=== PATIENT | male | born 1970 | race African-American/Black ===

== ENCOUNTER 2019-03-02 04:44 | Emergency (ER) | payer SELFPAY ==
[2019-03-02] MEDS ORDERED: HYDROCODONE/APAP 5/325 MG TAB ONE (05:18)
[2019-03-02] MEDS ORDERED: CYCLOBENZAPRINE 10 MG TAB ONE (05:18)
[2019-03-02] MEDS ORDERED: KETOROLAC 30 MG/ML INJ ONE (05:19)
--- NOTE | 2019-03-02 05:30 | EDPHYS ---
Physician Documentation [facility] Name: Jelani Vázquez Age: 48 yrs Sex: Male : 1970 Arrival Date: 03/02/2019 Time: 04:46 Bed 13 Private MD: ED Physician Gary Scott HPI: 03/02 06:22 This 48 yrs old Black Male presents to ER via Ambulatory with complaints of Shoulder tw4 Pain. 06:22 The patient or guardian complains of decreased range of motion, pain, that is acute. tw4 left shoulder. Context: The problem was sustained at an unknown site. Onset: The symptoms/episode began/occurred yesterday. Modifying factors: the symptoms are alleviated by nothing. The symptoms are aggravated by lifting weight, movement, nothing. Associated signs and symptoms: The patient has no apparent associated signs or symptoms. The patient has not experienced similar symptoms in the past. Historical: - Allergies: 05:00 No Known Allergies; lp1 - Home Meds: 05:00 None [Active]; lp1 - PMHx: 05:00 None; lp1 - PSHx: 05:00 None; lp1 - Immunization history:: Adult Immunizations up to date. - Social history:: Smoking status: Patient uses tobacco products, smokes one pack cigarettes per day. - Ebola Screening: : No symptoms or risks identified at this time. ROS: 06:22 Constitutional: Negative for fever, chills, and weight loss, Eyes: Negative for injury, tw4 pain, redness, and discharge, Cardiovascular: Negative for chest pain, palpitations, and edema, Respiratory: Negative for shortness of breath, cough, wheezing, and pleuritic chest pain, Abdomen/GI: Negative for abdominal pain, nausea, vomiting, diarrhea, and constipation, Back: Negative for injury and pain, Neuro: Negative for headache, weakness, numbness, tingling, and seizure. 06:22 MS/extremity: Positive for injury or acute deformity, decreased range of motion, pain, tenderness. Exam: 06:22 Constitutional: This is a well developed, well nourished patient who is awake, alert, tw4 and in no acute distress. Head/Face: Normocephalic, atraumatic. Chest/axilla: Normal chest wall appearance and motion. Nontender with no deformity. No lesions are appreciated. Cardiovascular: Regular rate and rhythm with a normal S1 and S2. No gallops, murmurs, or rubs. Normal PMI, no JVD. No pulse deficits. Respiratory: Lungs have equal breath sounds bilaterally, clear to auscultation and percussion. No rales, rhonchi or wheezes noted. No increased work of breathing, no retractions or nasal flaring. Abdomen/GI: Soft, non-tender, with normal bowel sounds. No distension or tympany. No guarding or rebound. No evidence of tenderness throughout. Neuro: Awake and alert, GCS 15, oriented to person, place, time, and situation. Cranial nerves II-XII grossly intact. Motor strength 5/5 in all extremities. Sensory grossly intact. Cerebellar exam normal. Normal gait. 06:22 Musculoskeletal/extremity: Extremities: noted in the anterior aspect of left shoulder: decreased ROM, pain, tenderness, noted in the posterior aspect of right knee: decreased ROM, pain, tenderness. Vital Signs: 05:00 BP 156 / 107; Pulse 66; Resp 18; Temp 97.9(O); Pulse Ox 100% on R/A; Weight 88 kg; lp1 Height 6 ft. 0 in. (182.88 cm); Pain 10/10; 05:00 Body Mass Index 26.31 (88.00 kg, 182.88 cm) lp1 MDM: 05:00 Patient medically screened. tw4 06:22 Differential diagnosis: Anterior dislocation without fracture, Posterior dislocation tw4 without fracture, tendonitis, strain sprain. Data reviewed: vital signs, nurses notes. Counseling: I had a detailed discussion with the patient and/or guardian regarding: the historical points, exam findings, and any diagnostic results supporting the discharge/admit diagnosis. Medication response: Toradol relieved patient's pain. The symptoms have resolved. Response to treatment: the patient's symptoms have markedly improved after treatment, and as a result, I will discharge patient, administer pain medication, ibuprofen, Tramadol. Special discussion: I discussed with the patient/guardian in detail that at this point there is no indication for admission to the hospital. It is understood, however, that if the symptoms persist or worsen the patient needs to return immediately for re-evaluation. Administered Medications: 05:30 Drug: TORadol 60 mg Route: IM; Site: right gluteus; jb4 05:49 Follow up: Response: No adverse reaction; Pain is decreased jb4 05:30 Drug: [place] 5 mg-325 mg 1 tabs {Note: Rass score 0.} Route: PO; jb4 05:50 Follow up: Response: No adverse reaction; Pain is decreased; RASS: Alert and Calm (0) 4 05:30 Drug: Flexeril 10 mg Route: PO; 4 05:49 Follow up: Response: No adverse reaction; Pain is decreased 4 Disposition: 03/02/19 05:30 Discharged to Home. Impression: Pain in left shoulder, Sprain of other specified parts of right knee. - Condition is Stable. - Discharge Instructions: Joint Pain, Musculoskeletal Pain, Shoulder Pain. - Prescriptions for Ibuprofen 800 mg Oral Tablet - take 1 tablet by ORAL route every 8 hours As needed take with food; 30 tablet. Cyclobenzaprine 10 mg Oral Tablet - take 1 tablet by ORAL route every 8 hours As needed; 30 tablet. Tramadol 50 mg Oral Tablet - take 1 tablet by ORAL route every 8 hours as needed; 12 tablet. - Medication Reconciliation Form, Thank You Letter, Antibiotic Education, Prescription Opioid Use form. - Follow up: Private Physician; When: Upon discharge from the Emergency Department; Reason: Recheck today's complaints, Continuance of care. - Problem is new. - Symptoms have improved. Signatures: Abbie Yang RN RN lp1 Cas Barnes RN RN jb4 Gary Scott MD MD tw4 Corrections: (The following items were deleted from the chart) 05:50 05:30 03/02/2019 05:30 Discharged to Home. Impression: Pain in left shoulder; Sprain of jb4 other specified parts of right knee. Condition is Stable. Forms are Medication Reconciliation Form, Thank You Letter, Antibiotic Education, Prescription Opioid Use. Follow up: Private Physician; When: Upon discharge from the Emergency Department; Reason: Recheck today's complaints, Continuance of care. Problem is new. Symptoms have improved. tw4
--- NOTE | 2019-03-02 05:30 | ER ---
Nurse's Notes [facility] Name: Jelani Vázquez Age: 48 yrs Sex: Male : 1970 Arrival Date: 03/02/2019 Time: 04:46 Bed 13 Private MD: Diagnosis: Pain in left shoulder;Sprain of other specified parts of right knee Presentation: 03/02 04:58 Presenting complaint: Patient states: Pain to left shoulder and pain being right knee lp1 that began last night, patient states pain worsened; Denies any injury, limited ROM due to pain; States taking x4 baby ASA with no relief. Transition of care: patient was not received from another setting of care. Onset of symptoms was March 02, 2019. Risk Assessment: Do you want to hurt yourself or someone else? Patient reports no desire to harm self or others. Initial Sepsis Screen: Does the patient meet any 2 criteria? No. Patient's initial sepsis screen is negative. Does the patient have a suspected source of infection? No. Patient's initial sepsis screen is negative. Care prior to arrival: None. 04:58 Method Of Arrival: Ambulatory lp1 04:58 Acuity: GINNA 4 lp1 Historical: - Allergies: 05:00 No Known Allergies; lp1 - Home Meds: 05:00 None [Active]; lp1 - PMHx: 05:00 None; lp1 - PSHx: 05:00 None; lp1 - Immunization history:: Adult Immunizations up to date. - Social history:: Smoking status: Patient uses tobacco products, smokes one pack cigarettes per day. - Ebola Screening: : No symptoms or risks identified at this time. Screenin:00 Abuse screen: Denies threats or abuse. Nutritional screening: No deficits noted. jb4 Tuberculosis screening: No symptoms or risk factors identified. Fall Risk None identified. Assessment: 05:00 General: Appears in no apparent distress. uncomfortable, Behavior is calm, cooperative, jb4 appropriate for age. Pain: Complains of pain in Left shoulder, Right knee Pain does not radiate. Pain currently is 10 out of 10 on a pain scale. Quality of pain is described as stabbing, throbbing, Is continuous. Neuro: Level of Consciousness is awake, alert, obeys commands, Oriented to person, place, time, situation. Cardiovascular: Patient's skin is warm and dry. Respiratory: Airway is patent Respiratory effort is even, unlabored, Respiratory pattern is regular, symmetrical. GI: No signs and/or symptoms were reported involving the gastrointestinal system. : No signs and/or symptoms were reported regarding the genitourinary system. EENT: No signs and/or symptoms were reported regarding the EENT system. Derm: Skin is intact, Skin is pink, warm \T\ dry. Musculoskeletal: Circulation, motion, and sensation intact. Range of motion: intact in all extremities. 05:48 Reassessment: Patient appears in no apparent distress at this time. Patient and/or jb4 family updated on plan of care and expected duration. Pain level reassessed. Patient is alert, oriented x 3, equal unlabored respirations, skin warm/dry/pink. Vital Signs: 05:00 BP 156 / 107; Pulse 66; Resp 18; Temp 97.9(O); Pulse Ox 100% on R/A; Weight 88 kg; lp1 Height 6 ft. 0 in. (182.88 cm); Pain 10/10; 05:00 Body Mass Index 26.31 (88.00 kg, 182.88 cm) lp1 ED Course: 04:46 Patient arrived in ED. jg7 04:59 Cas Barnes, RN is Primary Nurse. jb4 04:59 Triage completed. lp1 04:59 Arm band placed on. lp1 05:00 Gary Scott MD is Attending Physician. tw4 05:00 Patient has correct armband on for positive identification. Bed in low position. Call jb4 light in reach. Side rails up X 1. Pulse ox on. NIBP on. 05:48 No provider procedures requiring assistance completed. Patient did not have IV access jb4 during this emergency room visit. Administered Medications: 05:30 Drug: TORadol 60 mg Route: IM; Site: right gluteus; jb4 05:49 Follow up: Response: No adverse reaction; Pain is decreased jb4 05:30 Drug: [place] 5 mg-325 mg 1 tabs {Note: Rass score 0.} Route: PO; jb4 05:50 Follow up: Response: No adverse reaction; Pain is decreased; RASS: Alert and Calm (0) jb4 05:30 Drug: Flexeril 10 mg Route: PO; jb4 05:49 Follow up: Response: No adverse reaction; Pain is decreased jb4 Outcome: 05:30 Discharge ordered by . tw4 05:48 Discharged to home ambulatory, with family. jb4 05:48 Condition: stable 05:48 Discharge instructions given to patient, family, Instructed on discharge instructions, follow up and referral plans. medication usage, Demonstrated understanding of instructions, follow-up care, medications, Prescriptions given X 3. 05:50 Patient left the ED. jb4 Signatures: Abbie Yang RN RN lp1 Cas Barnes RN RN jb4 Gary Scott MD MD tw4 Megan Rush jg7 Corrections: (The following items were deleted from the chart) 05:01 04:58 Presenting complaint: Patient states: Pain to left shoulder and pain being right lp1 knee that began last night, patient states pain worsened; Denies any injury, limited ROM due to pain lp1
[2019-03-02 05:56] VITALS: BP 156/107; TEMP 97.9; O2SAT 100
== END 2019-03-02 05:50 | disposition home or self-care (01) ==
LOC: ER 04:44
DX: S83.91XA Sprain of unspecified site of right knee, initial encounter (principal); M25.512 Pain in left shoulder; X58.XXXA Exposure to other specified factors, initial encounter; F17.210 Nicotine dependence, cigarettes, uncomplicated
CPT/HCPCS: 96372; 99283

== ENCOUNTER 2020-03-23 08:57 | Emergency (ER) | payer BC, SELFPAY ==
--- OUTSIDE RECORDS SUMMARY | 2020-03-23 09:15 | XMS REPORT | Continuity of Care Document ---
:1970 Author Organization [facility] t Address [address] [place] [address] Dr. Tran [address] [place] [id number] Care Team Providers Name Role Phone Berkley Hong PA-C Attending Clinician Problems This patient has no known problems. Allergies, Adverse Reactions, Alerts This patient has no known allergies or adverse reactions. Medications This patient has no known medications. Procedures This patient has no known procedures. Encounters Start End Encounter Admission Attending Care Care Encounter Source Date/Time Date/Time Type Type Clinicians Facility Department ID 2019-08-25 2019-08-25 Telephone [facility] [id number] 00:00:00 00:00:00 Delonte Gooden SPECIALTY [id number] CARE [id number] CENTER AT [id number] JUAN CARLOS 2 [facility] [place] 2019-08-13 2019-08-13 Telephone [facility] [phone] [id number] 00:00:00 00:00:00 Delonte Gooden MULTISPEC [id number] [facility] [id number] CENTER [id number] [facility] Results This patient has no known results.
[2020-03-23] MEDS ORDERED: ACETAMINOPHEN 500 MG TAB ONE (10:40)
--- NOTE | 2020-03-23 10:50 | RAD REPORT ---
EXAM DESCRIPTION: CT - Head Brain Wo Cont - 03/23/2020 10:36 am CLINICAL HISTORY: Headache COMPARISON: None TECHNIQUE: Computed axial tomography of the head was obtained. IV contrast was not requested. All CT scans are performed using dose optimization technique as appropriate and may include automated exposure control or mA/KV adjustment according to patient size. FINDINGS: An intracranial bleed is not seen . The ventricles are normal in caliber. No extra-axial fluid collection is noted. . Fluid within the sinuses/ mastoids is not seen. Mild chronic sinusitis IMPRESSION: No acute intracranial abnormality is seen. If patient's symptoms persist MRI of the bra in would be recommended.
--- NOTE | 2020-03-23 11:06 | ER ---
Nurse's Notes [facility] Name: Jelani Vázquez Age: 49 yrs Sex: Male : 1970 Arrival Date: 03/23/2020 Time: 09:00 Bed 19 Private MD: Diagnosis: Headache Presentation: 03/23 09:39 Chief complaint: Patient states: headache X 1 week and just feeling weak, does not iw usually get headaches, was exposed to COVID last week. Coronavirus screen: The client reports previous COVID testing was negative. Ebola Screen: Patient negative for fever greater than or equal to 101.5 degrees Fahrenheit, and additional compatible Ebola Virus Disease symptoms Patient denies exposure to infectious person. Patient denies travel to an Ebola-affected area in the 21 days before illness onset. No symptoms or risks identified at this time. Initial Sepsis Screen: Does the patient meet any 2 criteria? No. Patient's initial sepsis screen is negative. Does the patient have a suspected source of infection? No. Patient's initial sepsis screen is negative. Risk Assessment: Do you want to hurt yourself or someone else? Patient reports no desire to harm self or others. Onset of symptoms was March 16, 2020. 09:39 Method Of Arrival: Ambulatory iw 09:39 Acuity: GINNA 3 iw Historical: - Allergies: 09:42 No Known Allergies; iw - Home Meds: 09:42 None [Active]; iw - PMHx: 09:42 None; iw - PSHx: 09:42 None; iw - Immunization history:: Adult Immunizations unknown. - Social history:: Smoking status: unknown. Screenin:08 Abuse screen: Denies threats or abuse. Denies injuries from another. Nutritional ph screening: No deficits noted. Tuberculosis screening: No symptoms or risk factors identified. Fall Risk None identified. Assessment: 10:28 General: Appears in no apparent distress. Behavior is calm, cooperative. Pain: iw Complains of pain in head. Neuro: Level of Consciousness is awake, alert, obeys commands, Oriented to person, place, time, situation, Moves all extremities. Full function. Cardiovascular: Patient's skin is warm and dry. Respiratory: Respiratory effort is even, unlabored, Respiratory pattern is regular, symmetrical. Derm: Skin is intact, is healthy with good turgor. Musculoskeletal: Range of motion: intact in all extremities. 11:30 Reassessment: Patient appears in no apparent distress at this time. Patient and/or ph family updated on plan of care and expected duration. Pain level reassessed. Patient is alert, oriented x 3, equal unlabored respirations, skin warm/dry/pink. Vital Signs: 09:39 BP 128 / 79; Pulse 67; Resp 16; Temp 98.3; Pulse Ox 100% on R/A; Weight 108.86 kg; iw Height 6 ft. 0 in. (182.88 cm); Pain 7/10; 09:39 Body Mass Index 32.55 (108.86 kg, 182.88 cm) iw ED Course: 09:00 Patient arrived in ED. rg4 09:41 Triage completed. iw 10:08 Peggy Cain RN is Primary Nurse. ph 10:08 Dipak Guerrero PA is PHCP. cp 10:08 Zurdo Mcneil MD is Attending Physician. cp 10:08 Arm band placed on Patient placed in an exam room. ph 10:08 Patient has correct armband on for positive identification. Call light in reach. Door ph closed. Noise minimized. 10:28 No provider procedures requiring assistance completed. Patient did not have IV access iw during this emergency room visit. 10:36 CT Head Brain wo Cont In Process Unspecified. EDMS Administered Medications: 10:27 Drug: Tylenol 1000 mg Route: PO; iw 11:30 Follow up: Response: No adverse reaction ph Outcome: 11:06 Discharge ordered by MD. cp 11:30 Patient left the ED. ph Addendum: 03/25/2020 08:02 Addendum: COVID-19 Result: Negative result given to RN to notify pt. Notified pt of a a5 negative COVID 19 swab results. Pt advised that even with a negative test result they should remain in isolation until symptom free for 3 days without medication. Pt also advised to return to the ED for worsening symptoms. Signatures: Dispatcher [employer] EDMS Lucia Jordan RN RN Enedelia Lira RN RN aa5 Peggy Cain RN RN ph Dipak Guerrero PA PA cp Garcia, Rubi rg4
--- NOTE | 2020-03-23 11:07 | EDPHYS ---
Physician Documentation [facility] Name: Jelani Vázquez Age: 49 yrs Sex: Male : 1970 Arrival Date: 03/23/2020 Time: 09:00 Bed 19 Private MD: ED Physician Zurdo Mcneil HPI: 03/23 10:25 This 49 yrs old Black Male presents to ER via Ambulatory with complaints of Headache, cp Covid Exposure. 10:25 The patient complains of pain to the right islam, right frontal area and right cp temporal area. The patient describes the headache as aching. Onset: The symptoms/episode began/occurred 1 week(s) ago. 10:25 Associated signs and symptoms: Pertinent negatives: altered mental status, dizziness, cp fever, neck stiffness, sinus congestion, sinus tenderness, vision changes, vomiting. Severity of symptoms: in the emergency department the pain a " 7" out of "10". Patient reports girlfriend tested positive for COVID-19 last week. Patient reports [facility] and was negative. Historical: - Allergies: 09:42 No Known Allergies; iw - Home Meds: 09:42 None [Active]; iw - PMHx: 09:42 None; iw - PSHx: 09:42 None; iw - Immunization history:: Adult Immunizations unknown. - Social history:: Smoking status: unknown. ROS: 10:30 Constitutional: Negative for body aches, chills, fever, poor PO intake. cp 10:30 Eyes: Negative for injury, pain, redness, and discharge. cp Exam: 10:35 Constitutional: The patient appears in no acute distress, alert, awake, non-toxic, well cp developed, well nourished. 10:35 Head/Face: Normocephalic, atraumatic. cp 10:35 Eyes: Periorbital structures: appear normal, Conjunctiva: normal, no exudate, no injection, Lids and lashes: appear normal, bilaterally. 10:35 ENT: External ear(s): are unremarkable, Ear canal(s): are normal, clear, TM's: dullness, bilaterally, Nose: is normal, Mouth: Lips: moist, Oral mucosa: moist, Posterior pharynx: Airway: no evidence of obstruction, patent, Tonsils: no enlargement, no erythema, no exudate, erythema, is not appreciated. 10:35 Neck: ROM/movement: is normal, is supple, no meningismus, no nuchal rigidity, Lymph nodes: no appreciated lymphadenopathy. 10:35 Chest/axilla: Inspection: normal. 10:35 Cardiovascular: Rate: normal. 10:35 Respiratory: the patient does not display signs of respiratory distress, Respirations: normal, no use of accessory muscles, no retractions, labored breathing, is not present. 10:35 Abdomen/GI: Exam negative for discomfort, distension, guarding, Inspection: abdomen appears normal. 10:35 Skin: no rash present. 10:35 Neuro: Orientation: to person, place \\T\\ time. Mentation: is normal, Cerebellar function: is grossly normal, Motor: moves all fours, strength is normal, Sensation: is normal. Vital Signs: 09:39 BP 128 / 79; Pulse 67; Resp 16; Temp 98.3; Pulse Ox 100% on R/A; Weight 108.86 kg; iw Height 6 ft. 0 in. (182.88 cm); Pain 7/10; 09:39 Body Mass Index 32.55 (108.86 kg, 182.88 cm) iw MDM: 10:12 Patient medically screened. cp 10:35 Differential diagnosis: meningitis, meningoencephalitis, migraine, neoplasm, sinusitis, cp tension headache. 11:05 Data reviewed: vital signs, nurses notes, radiologic studies, CT scan. cp 11:05 Counseling: I had a detailed discussion with the patient and/or guardian regarding: the cp historical points, exam findings, and any diagnostic results supporting the discharge/admit diagnosis, radiology results, to return to the emergency department if symptoms worsen or persist or if there are any questions or concerns that arise at home. ED course: VSS. Patient appears non-toxic. Will discharge to home to quarantine while awaiting results of COVID-19 testing. 03/23 10: Order name: COVID-19 cp 03/23 10: Order name: CT Head Brain wo Cont; Complete Time: 11:03 cp Administered Medications: 10:27 Drug: Tylenol 1000 mg Route: PO; iw 11:30 Follow up: Response: No adverse reaction ph Disposition: 03/23/20 11:06 Discharged to Home. Impression: Headache. - Condition is Stable. - Discharge Instructions: General Headache Without Cause, COVID-19. - Prescriptions for Ibuprofen 800 mg Oral Tablet - take 1 tablet by ORAL route every 8 hours As needed take with food; 30 tablet. - Work release form, Medication Reconciliation Form, Thank You Letter, Antibiotic Education, Prescription Opioid Use form. - Follow up: Private Physician; When: 1 - 2 days; Reason: Worsening of condition. - Problem is new. - Symptoms have improved. Addendum: 03/24/2020 14:11 Co-signature as Attending Physician, Zurdo Mcneil MD I agree with the assessment and k dr plan of care. Signatures: Dispatcher [employer] EDNV Zurdo Mcneil MD MD kdr Lucia Jordan RN RN iw Peggy Cain RN RN ph Yolanda, LINUS Quesada cp Corrections: (The following items were deleted from the chart) 03/23 11:30 11:06 03/23/2020 11:06 Discharged to Home. Impression: Headache. Condition is Stable. ph Forms are Medication Reconciliation Form, Thank You Letter, Antibiotic Education, Prescription Opioid Use. Follow up: Private Physician; When: 1 - 2 days; Reason: Worsening of condition. Problem is new. Symptoms have improved. cp
[2020-03-28 15:34] VITALS: BP 128/79; TEMP 98.3; O2SAT 100
== END 2020-03-23 11:30 | disposition home or self-care (01) ==
LOC: ER 08:57
DX: R51.9 Headache, unspecified (principal); Z20.828 Contact with and (suspected) exposure to other viral communicable diseases
CPT/HCPCS: 70450; 99283; U0002

== ENCOUNTER 2020-06-09 06:45 | Emergency (ER) | payer BC ==
--- OUTSIDE RECORDS SUMMARY | 2020-06-09 06:47 | XMS REPORT | Continuity of Care Document ---
:1970 Author Organization [facility] t Address [address] [place] [address] Dr. Olgu[address] [place] [address] Care Team Providers Name Role Phone Berkley [...] Clinicians Facility Department ID 2019-08-25 2019-08-25 Telephone [facility] [id number] 00:00:00 00:00:00 Delonte Gooden SPECIALTY [id number] CARE [id number] CENTER AT [id number] [address] 2019-08-13 2019-08-13 [facility]phone [facility] [id number] 00:00:00 00:00:00 Delonte Gooden MULT[facility]PEC [id number] [facility] [id number] CENTER [id number] [facility] Results This patient has no known results.
[2020-06-09 07:45] LABS: Absolute Lymphocytes (CBC) 1.5 K/uL (0.7-4.9); Basophils % 0.6 % (0-1.3); Hematocrit 40.1 % (39.6-49.0); Lymphocytes % 24.4 % (15.3-44.8); MPV 7.5 fL (7.6-11.3); RBC Red Blood Cell Count 4.44 M/uL (4.33-5.43)
[2020-06-09] MEDS ORDERED: KETOROLAC 30 MG/ML INJ ONE (07:48)
[2020-06-09] MEDS ORDERED: HYDROCODONE/APAP 10/325 TAB ONE (07:48)
[2020-06-09 08:02] LABS: BUN Blood Urea Nitrogen 11 mg/dL (7-18); Bicarbonate 28 mmol/L (21-32); Glucose Level 90 mg/dL (74-106); Potassium 3.9 mmol/L (3.5-5.1); Sodium Level 141 mmol/L (136-145); Uric Acid 4.2 mg/dL (3.5-7.2)
--- NOTE | 2020-06-09 08:48 | RAD REPORT ---
EXAM DESCRIPTION: RAD - Knee Left 3 View - 06/09/2020 8:26 am CLINICAL HISTORY: PAIN, nontraumatic COMPARISON: No comparisons FINDINGS: No fracture, dislocation or periosteal reaction.No joint effusion seen. No joint space maxwell rowing. No soft tissue abnormality. IMPRESSION: Negative left knee. Clinical concerns for internal derangement or occult bony injury could be further assessed with MR im aging.
[2020-06-09] MEDS ORDERED: TRAMADOL HCL 50 MG TAB ONE (10:16)
--- NOTE | 2020-06-09 10:52 | EDPHYS ---
Physician Documentation [facility] Name: Jelani Vázquez Age: 50 yrs Sex: Male : 1970 Arrival Date: 06/09/2020 Time: 06:47 Bed 8 Private MD: ED Physician Zurdo Mcneil HPI: 06/09 07:16 This 50 yrs old Black Male presents to ER via Unassigned with complaints of Knee Pain. kdr 07:16 The patient presents with decreased range of motion, pain, that is acute. The kdr complaints affect the lateral aspect of left knee, posterior aspect of left knee, medial aspect of left knee and left knee. Context: The problem was sustained at home, resulted from an unknown cause, the patient can fully bear weight, the patient is able to ambulate, with mild difficulty, Problem is a result from a previous injury: No. Onset: The symptoms/episode began/occurred yesterday. Modifying factors: The symptoms are alleviated by nothing. the symptoms are aggravated by movement, weight bearing, bending knee. Associated signs and symptoms: The patient has no apparent associated signs or symptoms. Treatment prior to arrival includes: no previous treatment. Severity of symptoms: At their worst the symptoms were moderate, severe, in the emergency department the symptoms are unchanged. The patient has not experienced similar symptoms in the past, Has had pain in shoulder and left lateral hand but not in his knees. Historical: - Allergies: 07:19 No Known Allergies; jd3 - Home Meds: 07:19 None [Active]; jd3 - PMHx: 07:19 None; jd3 - PSHx: 07:19 None; jd3 - Immunization history:: Adult Immunizations up to date. - Social history:: Smoking status: Patient reports the use of cigarette tobacco products, smokes one-half pack cigarettes per day. ROS: 07:16 Constitutional: Negative for fever, chills, and weight loss, Eyes: Negative for injury, kdr pain, redness, and discharge, ENT: Negative for injury, pain, and discharge, Neck: Negative for injury, pain, and swelling, Cardiovascular: Negative for chest pain, palpitations, and edema, Respiratory: Negative for shortness of breath, cough, wheezing, and pleuritic chest pain, Abdomen/GI: Negative for abdominal pain, nausea, vomiting, diarrhea, and constipation, Back: Negative for injury and pain, : Negative for injury, bleeding, discharge, and swelling, Skin: Negative for injury, rash, and discoloration, Neuro: Negative for headache, weakness, numbness, tingling, and seizure activity. Psych: Negative for depression, anxiety, suicide ideation, homicidal ideation, and hallucinations, Allergy/Immunology: Negative for hives, rash, and allergies, Endocrine: Negative for neck swelling, polydipsia, polyuria, polyphagia, and marked weight changes, Hematologic/Lymphatic: Negative for swollen nodes, abnormal bleeding, and unusual bruising. 07:16 MS/extremity: Positive for decreased range of motion, pain. Exam: 14:24 Constitutional: This is a well developed, well nourished patient who is awake, alert, kdr and in no acute distress. Head/Face: Normocephalic, atraumatic. Eyes: Pupils equal round and reactive to light, extra-ocular motions intact. Lids and lashes normal. Conjunctiva and sclera are non-icteric and not injected. Cornea within normal limits. Periorbital areas with no swelling, redness, or edema. Neck: Trachea midline, no thyromegaly or masses palpated, and no cervical lymphadenopathy. Supple, full range of motion without nuchal rigidity, or vertebral point tenderness. No Meningismus. Chest/axilla: Normal chest wall appearance and motion. Nontender with no deformity. No lesions are appreciated. Back: No spinal tenderness. No costovertebral tenderness. Full range of motion. Skin: Warm, dry with normal turgor. Normal color with no rashes, no lesions, and no evidence of cellulitis. Neuro: Awake and alert, GCS 15, oriented to person, place, time, and situation. Cranial nerves II-XII grossly intact. Motor strength 5/5 in all extremities. Sensory grossly intact. Cerebellar exam normal. Normal gait. Psych: Awake, alert, with orientation to person, place and time. Behavior, mood, and affect are within normal limits. 14:24 Musculoskeletal/extremity: ROM: limited active range of motion, in the lateral aspect of left knee, posterior aspect of left knee, medial aspect of left knee and left knee, Circulation is intact in all extremities. Sensation intact. Compartment Syndrome exam of affected extremity: is normal. Joints: the left knee displays limited range of motion, pain at rest, painful range of motion, tenderness. Vital Signs: 07:19 BP 119 / 97; Pulse 71; Resp 16 S; Temp 98.7(TE); Pulse Ox 99% on R/A; Weight 90.72 kg jd3 (R); Height 6 ft. 0 in. (182.88 cm) (R); Pain 10/10; 08:06 Pulse 70; Resp 16 S; Pulse Ox 99% on R/A; jd3 10:04 BP 118 / 80; Pulse 45; Resp 17; Pulse Ox 100% ; jl7 07:19 Body Mass Index 27.12 (90.72 kg, 182.88 cm) jd3 MDM: 10:51 Patient medically screened. kdr 14:24 Data reviewed: vital signs, nurses notes, lab test result(s), radiologic studies. kdr Counseling: I had a detailed discussion with the patient and/or guardian regarding: the historical points, exam findings, and any diagnostic results supporting the discharge/admit diagnosis, lab results, radiology results, the need for outpatient follow up. 06/09 07:15 Order name: CBC with Diff kdr 06/09 07:15 Order name: Chem 7 kdr 06/09 07:15 Order name: Uric Acid kdr 06/09 07:16 Order name: CBC with Automated Diff; Complete Time: 08:29 EDMS 06/09 07:16 Order name: Basic Metabolic Panel; Complete Time: 08:29 EDMS 06/09 07:16 Order name: Uric Acid; Complete Time: 08:29 EDMS 06/09 07:15 Order name: Knee Left 3 View XRAY; Complete Time: 09:28 kdr Administered Medications: 07:42 Drug: TORadol - Ketorolac 15 mg Route: IVP; Site: right antecubital; jd3 08:00 Follow up: Response: No adverse reaction; Pain is unchanged, physician notified jl7 07:42 Not Given (Patient Refused): [place] 10 mg-325 mg 1 tabs PO once; RASS on ADMIN: Combtv4, jd3 Very Agttd3, Agttd2, Rstlss1, AlertClm0, Drwsy-1, Lt Sdtn-2, Mod Sdtn-3, Dp Sdtn-4, UnArsble-5 10:04 Drug: traMADol 100 mg Route: PO; jl7 10:39 Follow up: Response: No adverse reaction; Pain is decreased jl7 Disposition: 06/09/20 10:51 Discharged to Home. Impression: Pain in left knee. - Condition is Stable. - Discharge Instructions: Joint Pain, Musculoskeletal Pain, Knee Pain. - Prescriptions for Tramadol 50 mg Oral Tablet - take 1 tablet by ORAL route every 4-6 hours as needed; 16 tablet. - Medication Reconciliation Form, Thank You Letter, Prescription Opioid Use, Work release form form. - Follow up: Private Physician; When: 2 - 3 days; Reason: If symptoms return, Further diagnostic work-up, Recheck today's complaints, Continuance of care, Re-evaluation by your physician. Follow up: Jermaine Cordova MD; When: 2 - 3 days; Reason: If symptoms return, Further diagnostic work-up, Recheck today's complaints, Continuance of care, Re-evaluation by your physician. - Problem is an ongoing problem. - Symptoms have improved. Signatures: Dispatcher [employer] EDMS Zurdo Mcneil MD MD [facility] Jasbir Soria RN RN jl7 Shmuel Mendez RN RN jd3 Corrections: (The following items were deleted from the chart) 10:58 10:51 06/09/2020 10:51 Discharged to Home. Impression: Pain in left knee. Condition is jl7 Stable. Forms are Work release form, Medication Reconciliation Form, Thank You Letter, Antibiotic Education, Prescription Opioid Use. Follow up: Private Physician; When: 2 - 3 days; Reason: If symptoms return, Further diagnostic work-up, Recheck today's complaints, Continuance of care, Re-evaluation by your physician. Follow up: Dr. Jermaine Cordova; When: 2 - 3 days; Reason: If symptoms return, Further diagnostic work-up, Recheck today's complaints, Continuance of care, Re-evaluation by your physician. Problem is an ongoing problem. Symptoms have improved. kdr
--- NOTE | 2020-06-09 10:52 | ER ---
Nurse's Notes [facility] Name: Jelani Vázquez Age: 50 yrs Sex: Male : 1970 Arrival Date: 06/09/2020 Time: 06:47 Bed 8 Private MD: Diagnosis: Pain in left knee Presentation: 06/09 07:17 Chief complaint: Patient states: "I a,m having left knee pain that started last night. jd3 I haven't injured it, but it feels like my leg is just going ot fall off.". Coronavirus screen: At this time, the client does not indicate any symptoms associated with coronavirus-19. Ebola Screen: Patient negative for fever greater than or equal to 101.5 degrees Fahrenheit, and additional compatible Ebola Virus Disease symptoms. Initial Sepsis Screen: Does the patient meet any 2 criteria? No. Patient's initial sepsis screen is negative. Does the patient have a suspected source of infection? No. Patient's initial sepsis screen is negative. Risk Assessment: Do you want to hurt yourself or someone else? Patient reports no desire to harm self or others. Onset of symptoms was June 08, 2020. 07:17 Method Of Arrival: Ambulatory jd3 07:17 Acuity: GINNA 3 jd3 Historical: - Allergies: 07:19 No Known Allergies; jd3 - Home Meds: 07:19 None [Active]; jd3 - PMHx: 07:19 None; jd3 - PSHx: 07:19 None; jd3 - Immunization history:: Adult Immunizations up to date. - Social history:: Smoking status: Patient reports the use of cigarette tobacco products, smokes one-half pack cigarettes per day. Screenin:20 Abuse screen: Denies threats or abuse. Nutritional screening: No deficits noted. jd3 Tuberculosis screening: No symptoms or risk factors identified. Fall Risk Ambulatory Aid- None/Bed Rest/Nurse Assist (0 pts). Gait- Normal/Bed Rest/Wheelchair (0 pts) Mental Status- Oriented to own ability (0 pts). Total Bradshaw Fall Scale indicates No Risk (0-24 pts). Assessment: 07:21 General: Appears in no apparent distress. uncomfortable, Behavior is calm, cooperative, jd3 appropriate for age. Pain: Complains of pain in left knee Quality of pain is described as sharp, shooting. Neuro: Level of Consciousness is awake, alert, obeys commands, Oriented to person, place, time, situation. Cardiovascular: Capillary refill < 3 seconds Patient's skin is warm and dry. Respiratory: Airway is patent Respiratory effort is even, unlabored, Respiratory pattern is regular, symmetrical. GI: No signs and/or symptoms were reported involving the gastrointestinal system. : No signs and/or symptoms were reported regarding the genitourinary system. EENT: No signs and/or symptoms were reported regarding the EENT system. Derm: Skin is intact, Skin is dry, Skin is normal, Skin temperature is warm. Musculoskeletal: Circulation, motion, and sensation intact. Range of motion: intact in all extremities. 08:07 Reassessment: Patient appears in no apparent distress at this time. No changes from [facility] previously documented assessment. Patient and/or family updated on plan of care and expected duration. Pain level reassessed. Patient is alert, oriented x 3, equal unlabored respirations, skin warm/dry/pink. 09:00 Reassessment: Patient appears in no apparent distress at this time. Patient and/or [facility] family updated on plan of care and expected duration. Pain level reassessed. Patient is alert, oriented x 3, equal unlabored respirations, skin warm/dry/pink. Patient states feeling better. 10:03 Reassessment: Patient appears in no apparent distress at this time. No changes from [facility] previously documented assessment. Patient and/or family updated on plan of care and expected duration. Pain level reassessed. Patient is alert, oriented x 3, equal unlabored respirations, skin warm/dry/pink. ERD notified of unchanged pain, see [facility] for orders. 10:40 Reassessment: Pt reports decreased pain, requesting to be discharged, ERD notified. [facility] 10:42 Reassessment: ERD at bedside discussing results and POC. [facility] Vital Signs: 07:19 BP 119 / 97; Pulse 71; Resp 16 S; Temp 98.7(TE); Pulse Ox 99% on R/A; Weight 90.72 kg jd3 (R); Height 6 ft. 0 in. (182.88 cm) (R); Pain 10/10; 08:06 Pulse 70; Resp 16 S; Pulse Ox 99% on R/A; jd3 10:04 BP 118 / 80; Pulse 45; Resp 17; Pulse Ox 100% ; jl7 07:19 Body Mass Index 27.12 (90.72 kg, 182.88 cm) jd3 ED Course: 06:47 Patient arrived in ED. bp1 07:12 Zurdo Mcneil MD is Attending Physician. kdr 07:17 Shmuel Mendez, RN is Primary Nurse. jd3 07:19 Triage completed. jd3 07:20 Arm band placed on. jd3 07:20 Patient has correct armband on for positive identification. Bed in low position. Call j light in reach. Side rails up X 1. Pulse ox on. NIBP on. 07:30 Initial lab(s) drawn, by me, sent to lab. Inserted saline lock: 20 gauge in right jl7 forearm, using aseptic technique. Blood collected. 08:25 Knee Left 3 View XRAY In Process Unspecified. EDMS 10:51 Jermaine Cordova MD is Referral Physician. kdr 10:57 No provider procedures requiring assistance completed. IV discontinued, intact, jl7 bleeding controlled, No redness/swelling at site. Pressure dressing applied. Administered Medications: 07:42 Drug: TORadol - Ketorolac 15 mg Route: IVP; Site: right antecubital; jd3 08:00 Follow up: Response: No adverse reaction; Pain is unchanged, physician notified jl7 07:42 Not Given (Patient Refused): [place] 10 mg-325 mg 1 tabs PO once; RASS on ADMIN: Combtv4, jd3 Very Agttd3, Agttd2, Rstlss1, AlertClm0, Drwsy-1, Lt Sdtn-2, Mod Sdtn-3, Dp Sdtn-4, UnArsble-5 10:04 Drug: traMADol 100 mg Route: PO; jl7 10:39 Follow up: Response: No adverse reaction; Pain is decreased jl7 Outcome: 10:51 Discharge ordered by . kdr 10:57 Discharged to home ambulatory. jl7 10:57 Condition: stable 10:57 Discharge instructions given to patient, Instructed on discharge instructions, follow up and referral plans. medication usage, Demonstrated understanding of instructions, follow-up care, medications, Prescriptions given X 1. 10:58 Patient left the ED. jl7 Signatures: Dispatcher [employer] EDND Zurdo Mcneil MD MD kdr Soria, Jahala, RN RN jl7 Shmuel Mendez RN RN jd3 Catrina Panda
[2020-06-09 15:47] VITALS: BP 119/97; TEMP 98.7; O2SAT 99
== END 2020-06-09 10:58 | disposition home or self-care (01) ==
LOC: ER 06:45
DX: M25.562 Pain in left knee (principal); F17.210 Nicotine dependence, cigarettes, uncomplicated
CPT/HCPCS: 36415; 80048; 84550; 85025; 96374; 99284

== ENCOUNTER 2021-04-23 21:00 | Emergency (ER) | payer BC ==
--- OUTSIDE RECORDS SUMMARY | 2021-04-23 21:03 | XMS REPORT | Continuity of Care Document ---
:1970 Author Organization [facility] t Address [address] [place] [address] [address] [place] [address] Care Team Providers Name Role Phone PCP, DOES NOT HAVE A Primary Care Physician Unavailable PAM MENARD Attending Clinician Unavailable CHI WINTER Attending Clinician Unavailable Pam Menard MD Attending Clinician Doctor Unassigned, Name Attending Clinician Unavailable Only, Test Attending Clinician Unavailable Laine BO, G Attending Clinician Unavailable Richar GARCES Attending Clinician Berkley MACK Attending Clinician Unavailable REEJustus, Berkley Attending Clinician Unavailable REEJustus, Berkley Attending Clinician Unavailable Berkley Mack PA-C Attending Clinician PAM MENARD Admitting Clinician Unavailable CHI WINTER Admitting Clinician Unavailable Pam Menard MD Admitting Clinician Berkley MACK Admitting Clinician Unavailable Payers Payer Name Policy Type Policy Number Effective Date Expiration Date S [facility] [id number] 2019 00:00:00 Problems Condition Condition Condition Status Onset Resolution Last Treating Co mments Source Name Details Category Date Date Treatment Clinician Date Rectal Rectal Disease Active Overview: Univer s pain pain 4-30 Formattin ity of 00:00: g of this [place] 00 note Medical might be Branch different from the original. Added automatic ally from request for surgery [id number] Lower Lower Disease Active Overview: Univer s abdominal abdominal 4-30 Formattin i ty of pain, pain, 00:00: g of this [place] unspecifie unspecifie 00 note Me dical d d might be Branch different from the original. Added automatic ally from request for surgery [id number] Change in Change in Disease Active Overview: Univers stool stool 4-30 Formattin ity of caliber caliber 00:00: g of this [place] 00 note Medical might be Branch different from the original. Added automatic ally from request for surgery [id number] Other Other Disease Active Overview: Univer s constipati constipati 4-30 Formattin ity of on on 00:00: g of this [place] 00 note Medical might be Branch different from the original. Added automatic ally from request for surgery [id number] Allergies, Adverse Reactions, Alerts Allergy Allergy Status Severity Reaction(s) Onset Inactive Treating Comm ents Source Name Type Date Date Clinician NO KNOWN Drug Active Univers ALLERGIE Class ity of [facility] Social History Social Habit Start Date Stop Date Quantity Comments Source Exposure to Not sure [facility] SARS-CoV-2 [facility] Branch (event) Tobacco use and 2020-10-25 2020-10-25 Current user Univers [facility] exposure 00:00:00 00:00:00 Medical Branch Sex Ass[birth year] [facility] 00:00:00 00:00:00 Medical Branch Smoking Status Start Date Stop Date Source Smoker, current status 2020-10-25 00:00:00 [facility] unknown Branch Unknown if ever smoked [facility] Medical Branch Medications Ordered Filled Start Stop Current Ordering Indication Dosage Frequency Signature Comments Components Source Medication Medication Date Date Medication? Clinician (SIG) Name Name peg-electro 2020-0 Yes Take as Uni vers lyte soln 5-04 directed ity of 236-22.74-6 00:00: [place] .74 -5.86 00 Medical gram Branch solution peg-electro 2020-0 Yes Take as Uni vers lyte soln 5-04 directed ity of 236-22.74-6 00:00: [place] .74 -5.86 00 Medical gram Branch solution peg-electro 2020-0 Yes Take as Uni vers lyte soln 5-04 directed ity of 236-22.74-6 00:00: [place] .74 -5.86 00 Medical gram Branch solution peg-electro 2020-0 Yes Take as Uni vers lyte soln 5-04 directed ity of 236-22.74-6 00:00: [place] .74 -5.86 00 Medical gram Branch solution peg-electro 2020-0 Yes Take as Uni vers lyte soln 5-04 directed ity of 236-22.74-6 00:00: [place] .74 -5.86 00 Medical gram Branch solution peg-electro 2020-0 Yes Take as Uni vers lyte soln 5-04 directed ity of 236-22.74-6 00:00: [place] .74 -5.86 00 Medical gram Branch solution peg-electro 2020-0 Yes Take as Uni vers lyte soln 5-04 directed ity of 236-22.74-6 00:00: [place] .74 -5.86 00 Medical gram Branch solution peg-electro 2020-0 Yes Take as Uni vers lyte soln 5-04 directed ity of 236-22.74-6 00:00: [place] .74 -5.86 00 Medical gram Branch solution No known No Univers medications ity [facility] No known No Univers medications ity of [facility] No known No Univers medications ity [facility] No known No Univers medications ity [facility] No known No Univers [facility] Sign[facility] Vital Name Observation Time Observation Value Comments Source Systolic blood 2020-10-26 16:18:00 130 mm[Hg] [facility] Diastolic blood 2020-10-26 16:18:00 84 mm[Hg] [facility] Heart rate 2020-10-26 16:18:00 41 /min [facility] Oxygen saturation in 2020-10-26 16:18:00 100 /min [facility] Arterial blood by [facility] Pulse oximetry Branch Respiratory rate 2020-10-26 16:03:00 16 /min [facility] Body temperature 2020-10-26 13:38:00 36.89 Ayana [facility] Body height 2020-10-26 13:38:00 180.3 cm [facility] Body weight 2020-10-26 13:38:00 88.8 kg [facility] BMI 2020-10-26 13:38:00 27.30 kg/m2 [facility] Systolic blood 2020-10-26 13:38:00 128 mm[Hg] Univer sity of pressure [facility] Diastolic blood 2020-10-26 13:38:00 87 mm[Hg] Unive rsity of pressure [facility] Heart rate 2020-10-26 13:38:00 56 /min [facility] Body temperature 2020-10-26 13:38:00 36.89 Ayana [facility] 2020-10-26 13:38:00 16 /min [facility] Body height 2020-10-26 13:38:00 180.3 cm [facility] Body weight 2020-10-26 13:38:00 88.8 kg [facility] BMI 2020-10-26 13:38:00 27.30 kg/m2 [facility] Oxygen saturation in 2020-10-26 13:38:00 100 /min [facility] Arterial blood by [facility] Pulse oximetry Branch Procedures Procedure Date / Time Performing Clinician Source Performed SURGICAL PATHOLOGY EXAM 2020-10-26 15:20:00 Tomi Menard [facility] COLONOSCOPY 2020-10-26 14:46:00 Tomi Menard [facility] COLONOSCOPY (ENDO) 2020-10-26 13:22:11 Self Referred, [facility] COLONOSCOPY (ENDO) 2020-10-26 13:22:11 Self Referred, [facility] ASSIGNMENT OF BENEFITS 2020-10-26 12:47:38 Doctor Unassigned, No [facility] COVID-19 (ID NOW RAPID 2020-10-25 13:08:00 Tomi Menard [facility]) Medical Branch ASSIGNMENT OF BENEFITS 2020-10-02 13:17:00 Doctor Unassigned, No [facility] Encounters Start End Encounter Admission Attending Care Care Encounter Source Date/Time Date/Time Type Type Clinicians Facility Department ID 2021-02-12 Outpatient Les MENARD [facility] GIChris [id number] Univers 00:20:08 TOMI smith [facility] 2021-02-08 Outpatient R MOY [facility] DELMI [id number] Univers 19:39:27 NORA ity of [facility] 2020-10-26 2020-10-26 Hospital Brayan, [facility] [id number] Univers 07:49:00 11:55:00 Encounter Tomi Disla GERMÁN 350.1.13.10 ity of [facility] 4.2.7.2.686 Abhishek as BLDG [id number] [facility] [address] [place] 2020-10-26 2020-10-26 Surgery Brayan, [facility] [id number] Univers 09:00:00 09:45:00 Tomi Disla GERMÁN 350.1.13.10 ity of [facility] 4.2.7.2.686 Abhishek as BLDG [id number] [facility] [address] [place] 2020-10-26 2020-10-26 Orders Doctor NOLASCO [id number] Univers 00:00:00 00:00:00 Only UnassignedRAMIRO 350.1.13.10 ity of [place] [facility] 4.2.7.2.686 Abhishek as [phone] [facility] 009 Branch 2020-10-25 2020-10-25 Laboratory Only, Adc Test [facility] 1.2.840. 114 [id number] Univers 07:54:11 08:09:11 Only Brayan Tomi Pam Doherty 350.1.13.10 ity of [place] 4.2.7.2.686 [place] [facility] [id number] [facility] 353 Branch 2020-10-25 2020-10-[address] [facility] [id number] Univers 08:00:00 08:00:00 [id number] ity of [facility] 2020-10-25 2020-10-[address] [facility] [id number] Univers 08:00:00 08:00:00 ity of [facility] 2020-10-04 2020-10-04 Nurse Rj NOLASCO 1.2.840.114 [id number] Univers 00:00:00 00:00:00 Triage dSaima 350.1.13.10 ity of [facility] 4.2.7.2.686 Abhishek as [phone] [facility] 019 Branch 2020-10-02 2020-10-02 Laboratory Only, Adc Test [facility] 1.2.840. 114 [id number] Univers 08:19:18 08:34:18 Only David Mcqueen 350.1.13.10 ity of [place] 4.2.7.2.686 [place] [facility] [place] [id number] [facility] 353 Branch 2020-10-02 2020-10-[address] [facility] [id number] Univers 08:00:00 08:00:00 [id number] ity of [facility] 2020-10-02 2020-10-[address] [facility] [id number] Univers 08:00:00 08:00:00 ity [facility] 2020-10-02 2020-10-02 Orders Doctor GAURAV 1.2.840.114 [id number] Univers 00:00:00 00:00:00 Only Unassigned, RAMIRO 350.1.13.[address] [facility] 4.2.7.2.686 Abhishek as [id number] [facility] 009 Branch 2019-10-22 2019-10-22 [id number] Univers 10:00:00 10:00:00 DELONTE [id number] [facility] 2019-10-22 2019-10-[address] [facility] [id number] Univers 10:00:00 10:00:00 DELONTE smith [facility] 2019-10-08 2019-10-[address] [facility] [id number] Univers 13:00:00 13:00:00 DELONTE smith [facility] 2019-09-22 2019-09-[address] [facility] [id number] Univers 08:15:00 08:15:00 [id number] itgabby [facility] 2019-09-22 2019-09-22 Outpatient R RIAN ARCINIEGA [facility] [id number] Univers 08:15:00 08:15:00 RIAN ARCINIEGA [facility] 2019-08-25 2019-08-[address] [facility] [id number] 00:00:00 00:00:00 Delonte L SPECIALTY 350.1.13.10 CARE 4.2.7.2.686 CENTER AT [id number] JUAN CARLOS Garcia [facility] 2019-08-25 2019-08-25 Telephone [facility] [id number] Univers 00:00:00 00:00:00 Delonte L SPECIALTY 350.1.13.10 ity of CARE 4.2.7.2.[address] [facility] s CENTER AT [id number] [address] 2019-08-18 2019-08-[address] [facility] [id number] Univers 09:15:00 09:15:00 ity [facility] 2019-08-18 2019-08-[address] [facility] [id number] Univers 08:45:00 08:45:00 ity of [facility] 2019-08-18 2019-08-[address] [facility] [id number] Univers 08:00:00 08:00:00 ity [facility] 2019-08-17 2019-08-[address] [facility] [id number] Univers 08:45:00 08:45:00 ity [facility] 2019-08-13 2019-08-13 [facility] [id number] Univers 00:00:00 00:00:00 Delonte Gooden MULTISPEC 350.1.13.10 ity of IALTY 4.2.7.2.[address] [facility] [place] [id number] [facility] AND [address] [facility] 2019-08-13 2019-08-13 Telephone [facility] [id number] 00:00:00 00:00:00 Delonte Gooden MULTISPEC 350.1.13.10 IALTY 4.2.7.2.686 [place] [id number] [place] [id number] [facility] 2019-08-10 2019-08-10 Telephone [facility] [id number] Univers 00:00:00 00:00:00 Delonte Gooden SPECIALTY 350.1.13.10 ity of [place]7.2.686 [place] [id number] Ny margaret RANGEL [address] [place] [address] 2019-08-06 2019-08-[address] [facility] [id number] Univers 07:50:58 23:59:00 DELONTE smith [facility] 2019-07-26 2019-07-26 Prep For Martina [facility] 1.2.840.114 [id number] Univers 00:00:00 00:00:00 Surgery Delonte Gooden SPECIALTY 350.1.13.10 ity of [place]2.7.2.686 [place] [id number] Ny juanjomarta RANGEL [address] [place] [address] 2019-07-23 2019-07-23 Telemedici Martina [facility] 1.2.840.114 [id number] Univers 08:29:01 08:59:01 ne Visit Delonte L MULTISPEC 350.1.13.10 ity of [place].2.686 [place] [id number] [facility] AND ÁLVARO [address] [place] [address] DIABETES CLINIC Results Test Description Test Time Test Comments Results Result Comments Source SURGICAL PATHOLOGY EXAM 2020-10-27 16:05:32 Test Item Value Reference Range Interpretation Comme nts Case Report (test code = [id number]) Surgical Pathology ?Case: [id number] ? Authorizing Provider: ?Tomi Menard MD ? ? ?Collected: ? 10/26/2020 1020 ?Ordering Location: ? ? GI Endoscopy OR Department Received: ?10/26/2020 1416 ?Pathologist: ? Halima Crowe MD ? Specimen: ? ?LARGE INTESTINE, RIGHT-ASCENDING COLON, 1. ascending colon cold snare eval adenoma ? Final Diagnosis (test code = e3dikVJxMEQjp4geQZZenQNsHrNhGgFiWlVeCg pcd [id number]) OPuYMtajtZaEKgupPjzTQDyH2fsilOtFCOxiHKpY8 IchkbnSBdyRM7rUW2ifCmcgBUinHApHMZoAgXmn8e sn144rGBfz0nlJEBZuprldXi9cZmzP26kx9J4Muab P09xtMKgYPK5AGFgFIMsnAWgPEUjLMJ0FEAxdXRlY 9bnCAQkVB6qyealHTpoKHlgPKOvoGR5WYIdyUHeM4 OaJBPsABobTFCftqs2RuCtRo8nzYNwsLyrWJjzVLJ cVHQpRSjjHXLxPlUeuSFyKAL5XMLHMY4JUQLLCIrW CROXK9QXZuOBFigxKOLWROGvZ87QPfQcLI9OMMMVY 6GSIJp5JDHiwaCbZZGrMX9hACYQQUeOTjOSNUDIB7 [file] jXzsJnkjz8IjXVYeWGVeJkxcbIPkeO6= Clinical Information (test code = Napoleon Champion is a 50 year ol d male [id number]) HX of Rectal pain [K62.89]Lower abdominal pain, unspecified [R10.30]Change in stool caliber [R19.5]Other constipation [K59.09]1. ascending colon cold snare eval adenoma Gross Description (test code = o9dreNOnABVzzPFJSONsU3vmnaFoSQXxjRHm [facility] [id number]) jjsYQmkTG1sAL9vfMevtRAklXKxLQ9ILKPwEhBxKY TtgLUndkZvTkViWUVwdWLncBI7JJOmVC7nrgadAQb fGGedAKXimmP2KIMkjJSrM5CoUVKuCQ4yydprDCD0 HAaotR7vroDIRmkbWi5grGJzgIrmCbWcIfSiJWMsN EFtJMMnxYdyPCLgVGm8aW4AUwmhDVP5LAIFGyrtPL JvFF1Wr1feACCqqNWuTYL8EOucuKDhKYFsVULzDVv 3TDYjTFgoqUBxLA8zsKudMkxsrMmen4PtlDYzTNzj ODKjMCMsYTuySTWsOZ0PFzSgYZdhXPd4RtZfJZc5Y La5SO2LFwMrWZXgZJi5RMYcQFLsGWl2FOncRL4ZYE FvWfx3LNR4YxSsETD7BMStZNu0ALPxUWbqKACixWW iFXgcQvLrOBXwYHiuhYNiQO0prAltdZUweeqjhaYy XHBhciANClxwbGFpblxlcGljTmVzdERvYzEgDQpcb HRycGFyXGxpbjBccmluMCANClxsdHJjaFxmczIwIF WwQIGjyEGxNTHjvHRytmRhQKk6RWTftX7uAd4dqPU atY9ymLLxIWzkFDJ9hFXyVXIkPDRvZJKxVM57W0Af fsQqYTvvTTzemvKeFkAfDHElBNHcSOPnsjJpe6Pgt zIyBZWgX8d5NHTtP3AyVFztZznfOCQxGH9dgO3nMZ PpkP1zSFMxeGGmt15xsyHlVCDkaDKnMKAug22qMzC gmzJpV32eh7gxbEVpk4ItbKeeZPFyjr1doi54duO9 dSRtqOKfReUkM43pvjZiMEveuZbvxV9is2rluIWfX cr0LU1hppQtmxFeyawhqzixZCVfNKT4KWNeQCG0ET MpTAZcxLMnkpSeLI85RDqfMG8dVKtoVI2lJEVvINZ 0sHmwiKAhfsAnCfebaWKaHPKqvVajg9SxpHVsYPDy g1IvjZFaMNzcJU5sCBW9Kk6brALzIMRhulD4m6IyI JtkRJLkMsmcOURwERjwwJExTJ5XD2H6wBQxWF9vPI whPUDUEHhOT3JTSCzvqO6lXWv2uKbaZU7sYAgsIF5 ogPNhIEL3yX8ym5rxs4UsrhSPb1Jev2LbneVdMCaz eKphoS1iKCTsI16lg9RMa1OzIIYdRXqeq5iedHoar 1HylTGcIVfgZQJlxYTtGVpngR8kHsSce7otjZx7XT gltwD8HYZrqy2IArgzfN8yEvXzv1mynIy0XAMVBdu xgzF4l8phjOdnf8PtxBPrCQ1EDu9= Disclaimer (test code = [id number]) s4beoOXtEJUet1omGNAjdCLvGmSlJnP cZnRuYmpcd [file] ixHWkzVoYsIlKyRLorOCS2wD== Embedded Images (test code = 7448827866) [facility]-19 (ID NOW RAPID TESTING)2020-10-25 13:51:22 Test Item Value Reference Range Interpretation Comments SARS-CoV-2 Rapid ID NOW Not Detected Not Detected (test code = 54064-8) NELLY (test code = NELLY) ID NOW COVID-19 Assay is an isothermal nucleic acid amplification test intended for the qualitative detection of nucleic acid from SARS-CoV-2 viral RNA in nasopharyngeal (INTERNAL COMMUNICATIONS MANAGER) specimens. It is used under Emergency Use Authorization (EUA) by FDA. The limit of detection (LOD) of the assay is 125 Genome Equivalents/mL. A positive result is indicative of the presence of SARS-CoV-2 RNA. ?Clinical correlation with patient history and other diagnostic information is necessary to determine patient infection status. A negative (Not Detected) result does not preclude SARS-CoV-2 infection. In patients with clinical symptoms and other tests that are consistent with SARS-CoV-2 infection, negative results should be treated as presumptive negative and a new specimen should be tested with alternative PCR molecular test. Invalid: Please collect a new specimen for repeat patient testing if clinically indicated. Lab Interpretation Normal (test code = 07135-7) [facility]
[2021-04-24 00:16] LABS: SARS-COV-2 RT PCR POSITIVE (NEGATIVE)
--- NOTE | 2021-04-24 00:41 | ER ---
Nurse's Notes [facility] Name: Jelani Vázquez Age: 50 yrs Sex: Male : 1970 Arrival Date: 04/23/2021 Time: 21:12 Bed 1 Private MD: Diagnosis: Coronavirus infection, unspecified Presentation: 04/23 22:58 Chief complaint: Patient states: he started having chills last night, congestion, runny bb nose. Coronavirus screen: chills, congestion, runny nose, Client presents with at least one sign or symptom that may indicate coronavirus-19. Standard/surgical mask placed on the client. Ebola Screen: No symptoms or risks identified at this time. Initial Sepsis Screen: Does the patient meet any 2 criteria? No. Patient's initial sepsis screen is negative. Does the patient have a suspected source of infection? No. Patient's initial sepsis screen is negative. Risk Assessment: Do you want to hurt yourself or someone else? Patient reports no desire to harm self or others. Onset of symptoms was April 22, 2021. 22:58 Method Of Arrival: Ambulatory 22:58 Acuity: GINNA 4 bb Triage Assessment: 23:00 General: Appears in no apparent distress. Behavior is calm, cooperative. Pain: Denies bb pain. Neuro: Level of Consciousness is awake, alert, obeys commands, Oriented to person, place, time, situation. Cardiovascular: Capillary refill < 3 seconds Patient's skin is warm and dry. Respiratory: Respiratory effort is even, unlabored, Respiratory pattern is regular, Breath sounds are clear bilaterally. GI: No signs and/or symptoms were reported involving the gastrointestinal system. Derm: Skin is pink, warm \T\ dry. Musculoskeletal: Circulation, motion, and sensation intact. Historical: - Allergies: 23:00 No Known Allergies; bb - Home Meds: 23:00 None [Active]; bb - PMHx: 23:00 None; bb - PSHx: 23:00 None; bb - Immunization history:: Client reports receiving the 2nd dose of the Covid vaccine, Pfizer. - Social history:: Smoking status: Patient reports the use of cigarette tobacco products, smokes one-half pack cigarettes per day. Assessment: 04/24 00:51 Reassessment: Patient is alert, oriented x 3, equal unlabored respirations, skin bb warm/dry/pink. pt discharged by Rock Tellez NP. Vital Signs: 04/23 22:58 BP 158 / 79; Pulse 59; Resp 16 S; Temp 98(O); Pulse Ox 99% on R/A; Weight 88.9 kg (R); bb Height 5 ft. 11 in. (180.34 cm) (R); Pain 0/10; 22:58 Body Mass Index 27.34 (88.90 kg, 180.34 cm) rustam ED Course: 21:12 Patient arrived in ED. kc5 23:00 Triage completed. bb 23:00 Arm band placed on Patient placed in waiting room, Patient notified of wait time. covid bb swab sent. 04/24 00:31 Rock Tellez NP is PHCP. pm1 00:31 Dipak Keane MD is Attending Physician. pm1 00:39 Mandy Barnes, RN is Primary Nurse. bb Administered Medications: No medications were administered Outcome: 00:41 Discharge ordered by . pm1 00:52 Discharged to home ambulatory. rustam 00:52 Condition: stable 00:52 Patient left the ED. bb Signatures: Mandy Barnes, RN RN bb Rock Tellez NP GRANULATING MACHINE OPERATOR pm1 Monique Gonzalez kc5
--- NOTE | 2021-04-24 00:42 | EDPHYS ---
Physician Documentation [facility] Name: Jelani Vázquez Age: 50 yrs Sex: Male : 1970 Arrival Date: 04/23/2021 Time: 21:12 Bed 1 Private MD: ED Physician Dipak Keane HPI: 04/24 00:34 This 50 yrs old Black Male presents to ER via Ambulatory with complaints of Cough, pm1 Congestion, General Weakness. 00:34 The patient or guardian reports cough, with no sputum. Onset: The symptoms/episode pm1 began/occurred yesterday. Severity of symptoms: in the emergency department the symptoms are unchanged. Modifying factors: The symptoms are alleviated by nothing, the symptoms are aggravated by nothing. Associated signs and symptoms: Pertinent positives: body aches, generalized weakness. The patient has not experienced similar symptoms in the past. The patient has not recently seen a physician. Historical: - Allergies: 04/23 23:00 No Known Allergies; bb - Home Meds: 23:00 None [Active]; bb - PMHx: 23:00 None; bb - PSHx: 23:00 None; bb - Immunization history:: Client reports receiving the 2nd dose of the Covid vaccine, Pfizer. - Social history:: Smoking status: Patient reports the use of cigarette tobacco products, smokes one-half pack cigarettes per day. ROS: 04/24 00:34 Eyes: Negative for injury, pain, redness, and discharge, ENT: Negative for injury, pm1 pain. Positive for nasal congestion Cardiovascular: Negative for chest pain, palpitations, and edema. Abdomen/GI: Negative for abdominal pain, nausea, vomiting, diarrhea, and constipation, Back: Negative for injury and pain, MS/Extremity: Negative for injury and deformity, Skin: Negative for injury, rash, and discoloration, Neuro: Negative for headache, weakness, numbness, tingling, and seizure. Constitutional: Positive for body aches, fever, Negative for poor PO intake. Respiratory: Positive for cough, Negative for shortness of breath, sputum production, wheezing. All other systems are negative. Exam: 00:34 Constitutional: This is a well developed, well nourished patient who is awake, alert, pm1 and in no acute distress. Head/Face: Normocephalic, atraumatic. 00:34 Skin: Warm, dry with normal turgor. Normal color with no rashes, no lesions, and no evidence of cellulitis. MS/ Extremity: Pulses equal, no cyanosis. Neurovascular intact. Full, normal range of motion. 00:34 Eyes: Exam is negative for acute changes, Extraocular movements: no acute changes, Conjunctiva: no acute changes, no injection, Sclera: no acute changes, icterus, is not appreciated. 00:34 Cardiovascular: Exam negative for acute changes, Rate: normal, Rhythm: regular, Pulses: no pulse deficits are appreciated. 00:34 Respiratory: Exam negative for acute changes, respiratory distress, shortness of breath, the patient does not display signs of respiratory distress, Respirations: normal, Breath sounds: are clear throughout. 00:34 Neuro: Exam negative for acute changes, Orientation: is normal, Mentation: is normal, Motor: is normal, moves all fours, Gait: is steady, at a normal pace, without difficulty. Vital Signs: 04/23 22:58 BP 158 / 79; Pulse 59; Resp 16 S; Temp 98(O); Pulse Ox 99% on R/A; Weight 88.9 kg (R); bb Height 5 ft. 11 in. (180.34 cm) (R); Pain 0/10; 22:58 Body Mass Index 27.34 (88.90 kg, 180.34 cm) bb MDM: 04/24 00:31 Patient medically screened. pm1 00:40 Data reviewed: vital signs. Data interpreted: Pulse oximetry: on room air is 99 %. pm1 Interpretation: normal. Counseling: I had a detailed discussion with the patient and/or guardian regarding: the historical points, exam findings, and any diagnostic results supporting the discharge/admit diagnosis, lab results, the need for outpatient follow up, to return to the emergency department if symptoms worsen or persist or if there are any questions or concerns that arise at home. 04/23 23:02 Order name: COVID-19/FLU A+B (Document "Date of Onset" if Symptomatic); Complete Time: bb 00:34 Administered Medications: No medications were administered Disposition: 12:19 Co-signature as Attending Physician, Dipak Keane MD I agree with the assessment and krystle plan of care. Disposition Summary: 04/24/21 00:41 Discharge Ordered Location: Home pm1 Problem: new pm1 Symptoms: have improved pm1 Condition: Stable pm1 Diagnosis - Coronavirus infection, unspecified pm1 Followup: pm1 - With: Emergency Department - When: As needed - Reason: Worsening of condition Followup: pm1 - With: Private Physician - When: 2 - 3 days - Reason: Recheck today's complaints, Continuance of care, Re-evaluation by your physician Discharge Instructions: - Discharge Summary Sheet pm1 - COVID-19 pm1 - COVID-19 Frequently Asked Questions pm1 - 10 Things You Can Do to Manage Your COVID-19 Symptoms at Home - [facility] pm1 - COVID-19: Quarantine vs. Isolation - [facility] pm1 Forms: - Medication Reconciliation Form pm1 - Thank You Letter pm1 - Antibiotic Education pm1 - Prescription Opioid Use pm1 - Work release form pm1 Prescriptions: - Guaifenesin AC 10-100 mg/5 mL Oral Liquid - take 10 milliliters by ORAL route every 4 hours As needed; 240 milliliter; pm1 Refills: 0, Product Selection Permitted Signatures: Dispatcher [employer] Dipak Logan MD MD cha Ballard, Brenda, ANUPAM RN Rock Lee, HAND GLUER AND [employer]ER [employer]UER [employer]ER pm1
[2021-04-24 00:57] VITALS: BP 158/79; TEMP 98; O2SAT 99
== END 2021-04-24 00:52 | disposition home or self-care (01) ==
LOC: ER 21:00
DX: U07.1 COVID-19 (principal); F17.210 Nicotine dependence, cigarettes, uncomplicated
CPT/HCPCS: 0240U; 99281

== ENCOUNTER 2022-06-20 09:14 | Observation (INO) | payer BC, SELFPAY ==
--- OUTSIDE RECORDS SUMMARY | 2022-06-20 09:18 | XMS REPORT | Continuity of Care Document ---
:1970 Author Organization [facility] t Address [address] [facility] [address] [place] [id number] Care Team Providers Name Role Phone PCP, PATIENT DOES NOT HAVE A Primary Care Physician Unavaila TOMI Powers Attending Clinician Unavailable NORA WINTER Attending Clinician Unavailable Tomi Menard MD Attending Clinician Doctor Unassigned, [place] Attending Clinician Unavailable Only, Adc Test Attending Clinician Unavailable Saima Jang RN Attending Clinician Unavailable David Mcqueen MD Attending Clinician DELONTE MACK Attending Clinician Unavailable RIAN ARCINIEGA Attending Clinician Unavailable RIAN ARCINIEGA Attending Clinician Unavailable Delonte Mack PA-C Attending Clinician TOMI MENARD Admitting Clinician Unavailable NORA WINTER Admitting Clinician Unavailable Tomi Menard MD Admitting Clinician DELONTE MACK Admitting Clinician Unavailable Payers Payer Name Policy Type Policy Number Effective Date Expiration Date Viki potts [facility] [id number] 2019 00:00:00 Problems Condition Condition Condition Status Onset Resolution Last Treating Co mments Source Name Details Category Date Date Treatment Clinician Date Rectal Rectal Disease Active Overview: Univer s pain pain 4-30 Formattin ity of 00:00: g of this [place] 00 note Medical might be Branch different from the original. Added automatic ally from request for surgery [id number] Lower Lower Disease Active Overview: Ryan s abdominal abdominal 4-30 Formattin i ty of pain, pain, 00:00: g of this [place] unspecifie unspecifie 00 note Me dical d d might be Branch different from the original. Added automatic ally from request for surgery [id number] Change in Change in Disease Active Overview: Univers stool stool 4-30 Formattin ity of caliber caliber 00:00: g of this [place] 00 note Medical might be Branch different from the original. Added automatic ally from request for surgery [id number] Other Other Disease Active Overview: Blakeer s constipati constipati 4-30 Formattin ity of on on 00:00: g of this [place] 00 note Medical might be Branch different from the original. Added automatic ally from request for surgery [id number] Allergies, Adverse Reactions, Alerts Allergy Allergy Status Severity Reaction(s) Onset Inactive Treating Comm ents Source Name Type Date Date Clinician NO KNOWN Drug Active Univers ALLERGIE Class ity of [facility] Social History Social Habit Start Date Stop Date Quantity Comments Source Exposure to Not sure [facility] SARS-CoV-2 [facility] (event) Tobacco use and 2020-10-25 2020-10-25 Current user [facility] exposure 00:00:00 00:00:00 [facility] Sex Assigned At [birth year] [facility] 00:00:00 00:00:00 [facility] Smoking Status Start Date Stop Date Source Smoker, current status 2020-10-25 00:00:00 [facility] Branch Unknown if ever smoked [facility] Medications Ordered Filled Start Stop Current Ordering [...] solution No known No Univers medications ity of [facility] No known No Univers medications ity of [facility] No known No Univers medications ity of [facility] No known No Univers medications ity of [facility] No known No Univers medications ity of [facility] Vital Signs Vital Name Observation Time Observation Value Comments Source Systolic blood 2020-10-26 16:18:00 130 mm[Hg[facility] Diastolic blood 2020-10-26 16:18:00 84 mm[Hg] [facility] Heart rate 2020-10-26 16:18:00 41 /min [facility] Oxygen saturation in 2020-10-26 16:18:00 100 /min [facility] Arterial blood by [facility] Pulse oximetry Branch Respiratory rate 2020-10-26 16:03:00 16 /min [facility] Body temperature 2020-10-26 13:38:00 36.89 Ayana [facility] Body height 2020-10-26 13:38:00 180.3 cm [facility] Body weight 2020-10-26 13:38:00 88.8 kg Universi ty [facility] BMI 2020-10-26 13:38:00 27.30 kg/m2 Universi ty [facility] Branch Systolic blood 2020-10-26 13:38:00 128 mm[Hg] Univer sity of pressure [facility] Diastolic blood 2020-10-26 13:38:00 87 mm[Hg] Unive rsity of pressure [facility] Heart rate 2020-10-26 13:38:00 56 /min Universi ty [facility] [place] Body temperature 2020-10-26 13:38:00 36.89 Ayana [facility] 2020-10-26 13:38:00 16 /min [facility] Body height 2020-10-26 13:38:00 180.3 cm Universi ty [facility] Body weight 2020-10-26 13:38:00 88.8 kg Universi ty [facility] Branch BMI 2020-10-26 13:38:00 27.30 kg[facility]m2 [facility] Oxygen saturation in 2020-10-26 13:38:00 100 /min [facility] Arterial blood by [facility] Pulse oximetry Branch Procedures Procedure Date / Time Performing Clinician Source Performed SURGICAL PATHOLOGY EXAM 2020-10-26 15:20:00 Tomi Menard [facility] COLONOSCOPY 2020-10-26 14:46:00 Tomi Menard [facility] COLONOSCOPY (ENDO) 2020-10-26 13:22:11 Self Referred, [facility] Branch COLONOSCOPY (ENDO) 2020-10-26 13:22:11 [facility] ASSIGNMENT OF BENEFITS 2020-10-26 12:47:38 Doctor Unassigned, No [facility] COVID-19 (ID NOW RAPID 2020-10-25 13:08:00 Tomi Menard [facility]) Medical Branch ASSIGNMENT OF BENEFITS 2020-10-02 13:17:00 Doctor Unassigned, No [facility] Encounters Start End Encounter Admission Attending Care Care Encounter Source Date/Time Date/Time Type Type Clinicians Facility Department ID 2021-02-12 Outpatient R SAILAJA [facility] GIE [id number] Univers 00:20:08 TOMI itgabby of [facility] 2021-02-08 [facility] [id number] Univers 19:39:27 NORA ity of [facility] 2020-10-26 2020-10-26 [facility] [id number] Univers 07:49:00 11:55:00 Encounter Tomi DUNLAP [id number] ity of [place] 4.2.7.2.686 Abhishek as BLDG [id number] [facility] 020 [place] 2020-10-26 2020-10-26 [facility] [id number] Univers 09:00:00 09:45:00 Tomi DUNLAP [id number] ity of [facility] [id number] Abhishek as BLDG [id number] [facility] 020 [place] 2020-10-26 2020-10-26 Orders Doctor NOLASCO [id number] Univers 00:00:00 00:00:00 Only Unassigned, RAMIRO [id number] ity of [place] [facility] 4.2.7.2.686 Abhishek as [phone] [facility] 009 Branch 2020-10-25 2020-10-25 Laboratory Only, Adc Test [facility] 1.2.840. 114 [id number] Univers 07:54:11 08:09:11 Only Tomi Menard [id number] ity [place] [id number] [facility] 353 Branch 2020-10-25 2020-10-25 Outpatient R [facility] [id number] Univers 08:00:00 08:00:00 ity of [facility] 2020-10-04 2020-10-04 Nurse Rj NOLASCO [id number] Univers 00:00:00 00:00:00 Triage Saima whiteside [id number] ity of [facility] 4.2.7.2.686 Abhishek as [phone] [facility] 019 Branch 2020-10-02 2020-10-02 Laboratory Only, Adc Test [facility] 1.2.840. 114 [id number] Univers 08:19:18 08:34:18 Only David Mcqueen [id number] ity of [place] [phone] [facility] 353 Branch 2020-10-02 2020-10-02 Outpatient R [facility] [id number] Univers 08:00:00 08:00:00 ity of [facility] 2020-10-02 2020-10-02 Orders Doctor GAURAV [id number] Univers 00:00:00 00:00:00 Only Unassigned, RAMIRO [id number] ity of [place] [facility] 4.2.7.2.686 Abhishek as [phone] [facility] 009 Branch 2019-10-22 2019-10-22 [facility] [id number] Univers 10:00:00 10:00:[address] [facility] 2019-10-08 2019-10-08 [facility] [id number] Univers 13:00:00 13:00:[address] [facility] 2019-09-22 2019-09-22 Outpatient R RIAN ARCINIEGA [facility] [id number] Univers 08:15:00 08:15:00 RIAN ARCINIEGA [facility] 2019-08-25 2019-08-25 [facility] [id number] 00:00:00 00:00:00 Delonte Gooden SPECIALTY [id number] CARE [id number] CENTER AT [id number] JUAN CARLOS Radha [facility] 2019-08-25 2019-08-25 Telephone [facility] [id number] Univers 00:00:00 00:00:00 Delonte Gooden SPECIALTY 350.1.13.10 ity of [id number] C[place] AT [id number] Mn juanjomarta TAVAREZGabby [address] [place] [address] 2019-08-18 2019-08-18 Outpatient R [facility] [id number] Univers 09:15:00 09:15:[address] [facility] 2019-08-18 2019-08-18 Outpatient R [facility] [id number] Univers 08:45:00 08:45:[address] [facility] 2019-08-13 2019-08-13 [facility]phone [facility] [id number] 00:00:00 00:00:00 Delonte Gooden MULTISPEC 350.1.13.10 IALTY 4.2.7.2.686 CENTER [id number] AND ÁLVARO [facility] 2019-08-13 2019-08-13 Telephone [facility] [id number] Univers 00:00:00 00:00:00 Delonte ISRAELPEC 350.1.13.10 ity of IALTY 4.2.7.2.686 [facility] [phone] [facility] AND ÁLVARO [address] [place] [address] DIABETES [facility] 2019-08-10 2019-08-10 Telephone [facility] [id number] Univers 00:00:00 00:00:00 Delonte Gooden SPECIALTY 350.1.13.10 ity of CARE 4.2.7.2.686 [facility] s CENTER AT [phone] Mn margaret DAYSIGabby [address] [place] [address] 2019-08-06 2019-08-06 [facility] [id number] Univers 07:50:58 23:59:[address] [facility] 2019-07-26 2019-07-26 Prep For [facility] 1.2.840.114 [id number] Univers 00:00:00 00:00:00 Surgery Delonte Gooden SPECIALTY 350.1.13.10 ity of CARE 4.2.7.2.686 [facility] CENTER AT [phone] Mn margaret DAYSIGabby [address] [place] [address] 2019-07-23 2019-07-23 Telemedici [facility] 1.2.840.114 [id number] Univers 08:29:01 08:59:01 ne Visit Delonte ISRAELPEC 350.1.13.10 itCash 4.2.7.2.686 Alen flannery [place] [phone] [facility] AND ÁLVARO [address] [place] [address] DIABETES CLINIC Results Test Description Test Time Test Comments Results Result Comments Source SURGICAL PATHOLOGY EXAM 2020-10-27 16:05:32 Test Item Value Reference Range Interpretation Comme nts Case Report (test code = 0772333922) Surgical Pathology ?Case: [id number] ? Authorizing Provider: ?Tomi Menard MD ? ? ?Collected: ? 10/26/2020 1020 ?Ordering Location: ? ? GI Endoscopy OR Department Received: ?10/26/2020 1416 ?Pathologist: ? Halima Crowe MD ? Specimen: ? ?LARGE INTESTINE, RIGHT-ASCENDING COLON, 1. ascending colon cold snare eval adenoma ? Final Diagnosis (test code = [id number]OeMeHyGu pcd [id number]) ECmRKvlioXqAZuwfIqvEGLpN0oziiAlVOLbhVZpN5 BswqoeHIfxEP1sBK9jgBjxqSWsgYMrDGEmFkIpu4c bo975sKHty0nmYJNVtsnswHs3dPjfV58fz8L9Wngm A45dfKIlGHF4WWTxGCQdhKHiVSUwAYO1UBMbsRIkO 2axJHGcGT9martmRTjjVUakUBGwmFT6ZJZnpRDgJ8 QgZWKyZTqqUFIvowq1DkXpUh9viLZtrSgmYHwzHAJ qEELlZSvxZPRgJsTmpTGfDMJ3SYAYDZ1YACLZPIuS OWBOG4RLEbZWFjxfSAGKGBIyE22FYuWwNE8ECEORP 3RNNHf3KFLduiMzPLJpYB2aKSNMLAvWCkJJWRXWK0 [file] hQzkIrwkj3KzNUSwRIYrJhyveFHdgY2= Clinical Information (test code = Jelani Champion is a 50 year ol d male [id number]) HX of Rectal pain [K62.89]Lower abdominal pain, unspecified [R10.30]Change in stool caliber [R19.5]Other constipation [K59.09]1. ascending colon cold snare eval adenoma Gross Description (test code = [id number]YZBjsJNs [facility] [id number]) fckERabNY6zXC7bvBaolTGqoOOfUJ6WJWKgJvTpME BfsEVzyxCoIpMrERQvuNHmpMP6BEGpRE2ojtikHQk wJFxgACUfxdZ6VRMjmQOvA4FmEXZfTF5rxwkyPIN4 KIwsaH1cyuNGEextTp0ujMJcrGqgRtBvZhVoUVAzO KBjLLKhbQifPWDcTQh3qD1DZivqQXN7XZNHCkjvFA LwIJ1Ks9apZMFtyIErRUB0RUrpnFKcHTLgJLBiBZy 8JSPuLNfvkZAuMS3doXjhJrtqlWixi6VmiVBwRHhj NIYiHYRjAJlmLPZuHM0NThVuGGeaZTe2JdKdGRd1G Fn2GG3BHpEdSXJgPQc0YXSfLHIzROb7OYfaNU1LGL WtKoz8ASI1PiDnFUK0JLHlVNy5LRQzBZtlBVRiiYC wBNhoQhJwYXByMOzzbFQfHV2anWankUBostczmkJw XHBhciANClxwbGFpblxlcGljTmVzdERvYzEgDQpcb HRycGFyXGxpbjBccmluMCANClxsdHJjaFxmczIwIF YfLPJaqIJhFNTqdGMugwEpTXn3CLTkuI0fEl6ftTA wwR9mwIPbTNqwBYP5hPDmGDSxKEWiPNPsSH24A4Lt eoEaFSooPOaksjGqDoYkSFTxSSNiYMMwoiYgb0Umz tEyERYnZ0y8FGMaS7YzRIvmYefnQMGeVR8wdY0mCQ BxqF1oVRUnwMBih94wnqEmJZXmdOJmKCGwc21uTdF bksUhY26me9umpIJnr4MbzCbvMPGerw8day81xqC2 nUTzyMRuDsWjP30uizPxAAzrwHbmlT9yp1ojcRKkI os3LM3oleJnuzRinueykiywOXTvYMZ3NRPaGLR1VS NdIWNsfQMddkHgSR09PVhmBS2wMQgrRC5jXJBiXZP 9qVzdrQDzlzGfLizbaEDnTGOcyFuqx1ZnnMGwOOXq i0ActUWzFBwbJC3gLQW0Bp3zzBStYQUtadB8m4CgK IhhTRBcOmnaPIWnJGkorBXkQX6LU9F2bUVyZX4uAA znQCAYDAbHE3GDMNvrxF3fJPh8rBwcMK9qADgrGD4 skLCfXYS2cC4oa4gbg3UddpDUq4Izd6HvkgCnANvk cAyrnW1wPFYfQ52ms1WPl2AkEHAiPZhfr5mybYfwx 9QzfIMaGQrcPLEvkNZjRMtieG2xYkMff2lloYi1OS powyU3CUGmir1OVpjkgN5lMvEls5xovYy3CYUUTho dztJ4f7vwcEzyf4XnwAFaDA8SWx6= Disclaimer (test code = 0510896676) b3wslJFsFJSlc3hiVGIovDBgGkCsKcW cZnRuYmpcd [file] hnNTidLuRpKeOuTXcwEDE7iO== Embedded Images (test code = 2022939407) [facility]ID [facility]2020-10-25 13:51:22 Test Item Value Reference Range Interpretation Comments SARS-CoV-2 Rapid ID NOW Not Detected Not Detected (test code = 01245-5) NELLY (test code = NELLY) ID NOW COVID-19 Assay is an isothermal nucleic acid amplification test intended for the qualitative detection of nucleic acid from SARS-CoV-2 viral RNA in nasopharyngeal (ROLL COVERER) specimens. It is used under Emergency Use [...] indicated. Lab Interpretation Normal (test code = 03957-8) [facility]
[2022-06-20] MEDS ORDERED: ASPIRIN 81 MG CHEWABLE TABLET ONE (09:38)
[2022-06-20 09:50] LABS: Absolute Lymphocytes (CBC) 1.6 K/uL (0.7-4.9); Hematocrit 39.8 % (39.6-49.0); Lymphocytes % 31.7 % (15.3-44.8); MCV 91.4 fL (80-100); MPV 6.8 fL (7.6-11.3); RBC Red Blood Cell Count 4.35 M/uL (4.33-5.43)
--- NOTE | 2022-06-20 10:06 | RAD REPORT ---
[facility] am CLINICAL HISTORY: CHEST PAIN COMPARISON: CHEST SINGLE VIEW dated 01/23/2007 TECHNIQUE: Portable AP view of the chest. FINDINGS: The lungs are clear. No pneumothorax or effusion. The cardiomediastinal contours are unrem arkable. IMPRESSION: No acute cardiopulmonary process.
[2022-06-20 10:09] LABS: Potassium 3.8 mmol/L (3.5-5.1); Troponin High Sensitivity 13.9 pg/mL (<58.9)
[2022-06-20] MEDS ORDERED: NITROGLYCERIN 0.4 MG/TAB SL ONE (10:55)
[2022-06-20] MEDS ORDERED: ACETAMINOPHEN 500 MG TAB PO PRN (13:36)
[2022-06-20] MEDS ORDERED: ALPRAZOLAM 0.25 MG TABLET PO PRN (13:36)
[2022-06-20] MEDS ORDERED: MORPHINE 2 MG/ML SYR IV PRN (13:46)
--- NOTE | 2022-06-20 13:47 | P.HP ---
Certification for Inpatient Patient admitted to: Observation With expected LOS: <2 Midnights Patient will require the following post-hospital care: None Practitioner: I am a practitioner with admitting privileges, knowledge of patient current condition, hospital course, and medical plan of care. Services: Services provided to patient in accordance with Admission requirements found in Title 42 Section 412.3 of the Code of Federal Regulations Patient History Date of Service: 06/20/22 Reason for admission: CP r/o ACS History of Present Illness: Patient is a 52yo gentleman who presents with sternal chest pressure. Allergies No Known Allergies Allergy (Unverified 12/14/15 18:39) - Past Medical/Surgical History -: Tobacco abuse -: Arthritis Past Surgical History: Patient denies surgical history - Family History Father Medical History: Heart disease Mother Medical History: Heart disease, Hypertension Brother Family History: Reviewed- Non-Contributory Sister Medical History: Heart disease - Social History Smoking Status: Heavy Tobacco smoker (>10 cigarettes/day) Alcohol use: No CD- Drugs: No Review of Systems 10-point ROS is otherwise unremarkable Physical Examination - Vital Signs Temperature: 98 F Blood Pressure: 140/70 Pulse: 80 Respirations: 18 Pulse Ox (%): 98 - Physical Exam General: Alert, In no apparent distress, Oriented x3 HEENT: Atraumatic, PERRLA, Mucous membr. moist/pink, EOMI, Sclerae nonicteric Neck: Supple, 2+ carotid pulse no bruit, No LAD, Without JVD or thyroid abnormality Respiratory: Clear to auscultation bilaterally, Normal air movement Cardiovascular: Regular rate/rhythm, Normal S1 S2, No murmurs Gastrointestinal: Normal bowel sounds, Soft and benign, Non-distended, No tenderness Musculoskeletal: No clubbing, No swelling, No tenderness Integumentary: No rashes Neurological: Normal gait, Normal speech, Normal strength at 5/5 x4 extr, Normal tone, Sensation intact, Cranial nerves 3-12 intact, Normal affect Lymphatics: No axilla or inguinal lymphadenopathy - Studies Laboratory Data (last 24 hrs) 06/20/22 09:40: PT 11.0, INR 1.00 06/20/22 09:40: WBC 4.90, Hgb 13.0 L, Hct 39.8, Plt Count 347 06/20/22 09:40: Sodium 140, Potassium 3.8, BUN 14, Creatinine 1.14, Glucose 99 Assessment & Plan - Problems (Diagnosis) (1) Chest pain, rule out acute myocardial infarction Current Visit: Yes Status: Acute - Advance Directives Does patient have a Living Will: No Does patient have a Durable POA for Healthcare: No
[2022-06-20] MEDS: ENOXAPARIN 40 MG/0.4 ML SQ SCH (14:00)
[2022-06-20 15:14] LABS: SARS-CoV-2 Antigen Rapid Res Negative (Negative)
[2022-06-20 17:29] VITALS: BMI 26.4
--- NOTE | 2022-06-20 18:50 | CON ---
Date of Consultation: 06/20/2022 Reason For Consultation: Chest pain. History Of Present Illness: This is a 52-year-old male with no medical history. He is a smoker, how ever, comes in with chest pain, retrosternal, radiates to the shoulder and it was sharp in nature. P ain resolved and no further complaints, but he is a smoker about 10 cigarettes per day. No nausea, v omiting, or diarrhea. No other complaints. Past Medical History: None. Medications: None. Allergies: NO KNOWN DRUG ALLERGIES. Family History: No premature coronary artery disease or cancer. Social History: He is a smoker. Does not drink. Does not drugs. Review of Systems: All systems reviewed and they were negative except as mentioned in HPI. Physical Examination: Vital signs: Reviewed. Head and Neck: Pupils are equal, reactive to light. Intact eye movements. No JVD. No cervical lym phadenopathy. Neck is supple. Thyroid is not enlarged. Lungs: Clear to auscultation bilaterally. No rhonchi, wheezing, or crackles. No accessory muscle u se. Heart: Regular rate and rhythm. No extra sounds. Abdomen: Soft, nontender. Bowel sounds positive. No organomegaly. No masses or hernia. No rigidi ty or rebound. Extremities: No edema, clubbing, cyanosis. Intact pulses. Skin: No rashes. Neurologic: Alert, awake, oriented x3. No acute focal deficits infiltrate. Investigations: Two troponins are negative. BUN 14, creatinine 1.1. Assessment/recommendations: Chest pain. Negative cardiac enzymes. Patient is a smoker. Recommend to obtain exercise stress test on him tomorrow unless the troponin rises. Continue baby aspirin and he was counseled to quit smoking. SR/MODL Voice ID: [id number] Report ID: [id number]
[2022-06-20] MEDS: METOPROLOL TAR 50 MG TAB PO SCH (21:00)
[2022-06-21 05:01] LABS: Absolute Lymphocytes (CBC) 1.9 K/uL (0.7-4.9); Hematocrit 38.1 % (39.6-49.0); Lymphocytes % 35.9 % (15.3-44.8); MCV 91.8 fL (80-100); MPV 7.2 fL (7.6-11.3); RBC Red Blood Cell Count 4.16 M/uL (4.33-5.43)
[2022-06-21 05:35] LABS: Potassium 4.1 mmol/L (3.5-5.1)
[2022-06-21 08:03] VITALS: O2SAT 99
[2022-06-21] MEDS: ENOXAPARIN 40 MG/0.4 ML SQ SCH (08:04)
[2022-06-21] MEDS: METOPROLOL TAR 50 MG TAB PO SCH (08:04)
[2022-06-21] MEDS ORDERED: REGADENOSON 0.4 MG/5 ML SYR IV ONE (08:26)
[2022-06-21] MEDS ORDERED: ASPIRIN EC 81 MG TAB PO SCH (09:00)
--- NOTE | 2022-06-21 12:40 | RAD REPORT ---
EXAM DESCRIPTION: NM - Rest Stress Cardiac Imaging - 06/21/2022 9:39 am CLINICAL HISTORY: CHEST PAIN COMPARISON: No comparisons TECHNIQUE: The patient was administered approximately 9.6 mCi of Tc 99m Sestamibi prior to resting S PECT imaging of the heart. The patient was then administered approximately 31.2 mCi of Tc 99m Sestami bi following exercise or pharmacologic stress. Multiplanar SPECT images were reviewed. FINDINGS: Splanchnic uptake more apparent on the stress and the rest images somewhat limits evaluati on. No stress induced ischemic defect is seen to suggest stress induced ischemia. Small fixed defect jeussita g the mid to basal segment of the inferior wall, more apparent on the rest images, favored to be maria ines factual rather than relating to a small infarct. No other definite fixed defect is seen to suggest hi bernating myocardium or scarred myocardium. The end diastolic volume is 138 ml, the end systolic volume is 56 ml, and the ejection fraction is 59 %. IMPRESSION: No definite scintigraphic evidence of stress related myocardial ischemia. Small defect along the mid to basal anterior wall segments favored to be artifactual, rather than rel ating to a small infarct. No other findings to suggest a myocardial infarct. Left ventricular ejection fraction is within normal limits, 59%.
[2022-06-21 12:59] VITALS: BP 131/81; TEMP 97.8
--- NOTE | 2022-06-21 13:47 | ECHO ---
HEIGHT: 5 ft 11 in WEIGHT: 190 lb 0 oz DATE OF STUDY: 06/21/[address]: Mariella Nieves MD 2-DIMENSIONAL: YES M.MODE: YES DOPPLER: YES COLOR FLOW: YES TDS: NO PORTABLE: YES DEFINITY: NO BUBBLE STUDY: NO DIAGNOSIS: CHEST PAIN RULE OUT ACS CARDIAC HISTORY: CATHERIZATION: NO SURGERY: NO PROSTHETIC VALVE: NO PACEMAKER: NO MEASUREMENTS (cm) DIASTOLIC (NORMALS) SYSTOLIC (NORMALS) IVSd 1.1 (0.6-1.2) LA Diam 2.2 (1.9-4.0) LVEF 69% LVIDd 4.7 (3.5-5.7) LVIDs 2.9 (2.0-3.5) %FS 39% LVPWd 1.1 (0.6-1.2) Ao Diam 3.0 (2.0-3.7) 2 DIMENSIONAL ASSESSMENT: RIGHT ATRIUM: NORMAL LEFT ATRIUM: NORMAL RIGHT VENTRICLE: NORMAL LEFT VENTRICLE: NORMAL TRICUSPID VALVE: NORMAL MITRAL VALVE: NORMAL PULMONIC VALVE: NORMAL AORTIC VALVE: NORMAL PERICARDIAL EFFUSION: NONE AORTIC ROOT: NORMAL LEFT VENTRICULAR WALL MOTION: NORMAL DOPPLER/COLOR FLOW: NORMAL COMMENTS: 1. NORMAL LEFT VENTRICULAR EJECTION FRACTION 60-65%. 2. NORMAL WALL MOTION. 3. NORMAL DIASTOLIC FUNCTION. TECHNOLOGIST: Dusty KOLB
--- NOTE | 2022-06-21 13:53 | TREADPHA ---
DX: CHEST PAIN Date of Study: 06/21/2022 Ht: 5' 11 " Wt: 190 lb 0 oz Consulting Physician: JUSTINE MEDICATIONS: TYLENOL, XANAX, ASPIRIN, LOPRESSOR, LOVENOX HISTORY: 52 YEAR OLD MALE WITH COMPLAINTS OF CHEST PAIN. NO MEDICAL HISTORY REPORTED. SMOKES 1 PACK OF CIGARETTES DAILY, NON DRINKER. PHYSICIAL EXAMINATION: RESTING B.P.: 120/76 RESTING H.R.: 44 RESTING EKG: NORMAL SINUS RHYTHM. PROTOCOL: LEXISCAN EXERCISE TIME: 3:30 B.P. AT PEAK STRESS: 160/79 IMPRESSION: LEXISCAN INJECTED, FOLLOWED BY CARDIOLITE PER PROTOCOL. SEE NUCLEAR MEDICINE REPORT. NO SUPRAVENTRICULAR OR VENTRICULAR TACHYCARDIA. NO PREMATURE ATRIAL COMPLEXES. PATIENT HAD OCCASIONAL PREMATURE VENTRICULAR COMPLEXES. PATIENT REPORTED CHEST PAIN 2/10 PRIOR TO PROCEDURE. NO CHANGE IN CHEST PAIN. NO EKG CHANGES WITH LEXISCAN.
[2022-06-21 18:07] LABS: Rheumatoid Factor NEG (NEG)
--- NOTE | 2022-06-24 13:18 | EKG ---
Test Date: 2022-06-20 Test Time: 09:23:11 Chef Manager: FELI MEASUREMENT RESULTS: Intervals: Rate: 50 OH: 164 QRSD: 84 QT: 428 QTc: 390 [place]: P: 68 OH: 164 QRS: 53 T: 54 INTERPRETIVE STATEMENTS: Sinus bradycardia with sinus arrhythmia Cannot rule out Anterior infarct, age undetermined Abnormal ECG Compared to ECG 12/13/2015 23:04:44 Myocardial infarct finding now present Electronically Signed On 06-24-22 13:09:41 CDT by Rashid Lieberman
== END 2022-06-21 14:24 | disposition home or self-care (01) ==
LOC: ER 09:14 → ERHOLD 13:36 → 4TH 16:57
PROVIDERS: ADMIT Hospitalist; ATTEND Hospitalist
DX: R07.9 Chest pain, unspecified (principal); F17.210 Nicotine dependence, cigarettes, uncomplicated; Z82.49 Family history of ischemic heart disease and other diseases of the circulatory system; Z71.6 Tobacco abuse counseling; Z20.822 Contact with and (suspected) exposure to COVID-19
CPT/HCPCS: 36415; 71045; 78452; 80048; 83880; 84484; 85025; 85379; 85610; 86038; 86140; 86200; 86225; 86430; 87811; 93005; 93017; 93306; 99285; A9500; J1650; J2785

== ENCOUNTER 2025-01-31 11:26 | Emergency (ER) | payer BC, SELFPAY ==
--- OUTSIDE RECORDS SUMMARY | 2025-01-31 11:30 | XMS REPORT | Continuity of Care Document ---
Author Name Unknown Address [address] [facility] [address] [place] [address] Organization [facility] [place] Address [address] [facility] [address] [place] [address] Care Team Providers Care Body Coverer Name Role Phone Scott Dangelo Primary Care Physician TOMI MENARD Attending Clinician Unavailtip WINTER, NORA MIRELES Attending Clinician UnaTomi Onofre MD Attending Clinician [phone] Campaigns, Generic Provider Attending Clinician Unavailable LUCINA WALTERS Attending Clinician Unavailable Lucina Walters DO Attending Clinician [phone] Tomi Menard MD Attending Clinician [phone] Doctor Unassigned, [place] Attending Clinician U navailable Only, Adc Test Attending Clinician Unavailable Saima Jang RN Attending Clinician Génesis David Hodges MD Attending Clinician [phone] DELONTE MACK Attending Clinician Unavailable RIAN ARCINIEGA Attending Clinician Unavailable RIAN ARCINIEGA Attending Clinician Unavailable Delonte Mack PA-C Attending Clinician [phone] TOMI MENARD Admitting Clinician Unavailtip WINTER, NORA MIRELES Admitting Clinician LUCIAN Bethea Admitting Clinician Unavailable Tomi Menard MD Admitting Clinician [phone] MARTINA DELONTE Berkley Admitting Clinician Unavailable Payers Payer Name Policy Type Policy Number Effective Date Expirati on Date Source [facility] [id number] 2019 00:00:00 Problems Condition Name Condition Details Condition Category Status Onset Date Resolution Date Last Treatment Date Treating Clinician Comments Source Rectal pain Rectal pain Disease Active 08-11 00:00: 00 Overview: Formattin g of this note might be different from the original. Added automatic ally from request for surgery [id number] [facility] Lower abdominal pain, unspecifie d Lower abdominal pain, unspecifie d Disease Active 08-11 00:00: 00 Overview: Formattin g of this note might be different from the original. Added automatic ally from request for surgery [id number] [facility] Change in stool caliber Change in stool caliber Disease Active 08-11 00:00: 00 Overview: Formattin g of this note might be different from the original. Added automatic ally from request for surgery [id number] [facility] Other constipati on Other constipati on Disease Active 08-11 00:00: 00 Overview: Formattin g of this note might be different from the original. Added automatic ally from request for surgery [id number] [facility] Allergies, Adverse Reactions, Alerts Allergy Name Allergy Type Status Severity Reaction(s) Onset Date Inactive Date Treating Clinician Comments Source NO KNOWN ALLERGIE S Drug Class Active [facility] Social History Social Habit Start Date Stop Date Quantity Comments Source History of tobacco use Smoker [facility] Exposure to SARS-CoV-2 (event) 2020-09-26 00:00:00 2020-10-26 08:41:00 Not sure [facility] History of Social function 2020-10-26 00:00:00 2020-10-26 00:00:00 [facility] Tobacco use and exposure 2020-10-04 00:00:00 2020-10-04 00:00:00 User of smokeless tobacco [facility] Sex assigned at 1970 00:00:00 1970 00:00:00 [facility] Smoking Status Start Date Stop Date Source Smoker 2020-10-04 00:00:00 [facility] Unknown if ever smoked [facility] Medications Ordered Medication Name Filled Medication Name Start Date Stop Date Current Medication? Ordering Clinician Indication Dosage Frequency Signature (SIG) Comments Components Source cetirizine 10 mg tablet 08-14 00:00: 00 Yes 1mg Manjeet Morales Flonase Allergy Relief 50 mcg/actuati on nasal spray,suspe nsion 08-14 00:00: 00 Yes 1mcg/ac tuation Manjeet Morales naproxen sodium 550 mg tablet 08-01 00:00: 00 Yes [id number] 550mg Take 1 tablet by mouth in the morning and 1 tablet in the evening. Take with meals. [facility] methylPREDN ISolone 4 mg tablets 08-01 00:00: 00 Yes [id number] Take by mouth SEE-INSTRU CTIONS. follow package directions [facility] TAKE BY MOUTH DIRECTED ON INSIDE OF PACKAGE 08-01 00:00: 00 Yes Manjeet Morales TAKE ONE TABLET BY MOUTH IN THE MORNING, ONE TABLET AT NOON, AND ONE TABLET IN THE EVENING 08-01 00:00: 00 Yes Manjeet Morales TAKE 1 TABLET BY MOUTH IN THE MORNING AND 1 IN THE EVENING WITH MEALS 08-01 00:00: 00 Yes Manjeet Morales methocarbam oL 500 mg tablet 08-01 00:00: 00 08-07 04:59 :00 No [id number] 500mg Take 1 tablet by mouth in the morning and 1 tablet at noon and 1 tablet in the evening. Do all this for 5 days. [facility] Zyrtec 10 mg tablet 12-15 00:00: 00 Yes 1mg Manjeet Morales diclofenac 3 % topical gel 01-04 00:00: 00 Yes 1% Manjeet Morales peg-electro lyte soln [id number] .74 -5.86 gram solution 08-15 00:00: 00 Yes Take as directed [facility] No known medications No Un urvashi ity [facility] No known medications No Un urvashi ity [facility] No known medications No Un urvashi ity [facility] No known medications [facility]s Vital Name Observation Time Observation Value Comments S delroy Systolic blood pressure 2023-08-02 19:30:00 145 mm[Hg] [facility] Diastolic blood pressure 2023-08-02 19:30:00 81 mm[Hg] [facility] Heart rate 2023-08-02 19:30:00 55 /min [facility] Body temperature 2023-08-02 19:30:00 -12.44 Ayana [facility] Respiratory rate 2023-08-02 19:30:00 19 /min [facility] Oxygen saturation in Arterial blood by Pulse oximetry 2023-08-02 19:30:00 99 /min [facility] Body height 2023-08-02 18:19:00 180.3 cm [facility] Body weight 2023-08-02 18:19:00 88.905 kg [facility] BMI 2023-08-02 18:19:00 27.34 kg/m2 [facility] Systolic blood pressure 2020-10-26 16:18:00 130 mm[Hg] [facility] Diastolic blood pressure 2020-10-26 16:18:00 84 mm[Hg] [facility] Heart rate 2020-10-26 16:18:00 41 /min [facility] Oxygen saturation in Arterial blood by Pulse oximetry 2020-10-26 16:18:00 100 /min [facility] Respiratory rate 2020-10-26 16:03:00 16 /min [facility] Body temperature 2020-10-26 13:38:00 36.89 Ayana [facility] Body height 2020-10-26 13:38:00 180.3 cm [facility] Body weight 2020-10-26 13:38:00 88.8 kg [facility] BMI 2020-10-26 13:38:00 27.30 kg/m2 [facility] Systolic blood pressure 2020-10-26 13:38:00 128 mm[Hg] [facility] Diastolic blood pressure 2020-10-26 13:38:00 87 mm[Hg] [facility] Heart rate 2020-10-26 13:38:00 56 /min [facility] Body [facility] 2020-10-26 13:38:00 36.89 Ayana [facility] Respiratory rate 2020-10-26 13:38:00 16 /min [facility] Body height 2020-10-26 13:38:00 180.3 cm [facility] Body weight 2020-10-26 13:38:00 88.8 kg [facility] BMI 2020-10-26 13:38:00 27.30 kg/m2 [facility] Oxygen saturation in Arterial blood by Pulse oximetry 2020-10-26 13:38:00 100 /min [facility] BP Systolic 2024-10-14 09:48:00 130 mm[Hg] Step hen Baltazar Andrew BP Diastolic 2024-10-14 09:48:00 71 mm[Hg] Sharif phen Baltazar Morales Weight Measured 2024-10-14 09:48:00 205.20 pounds Manjeet Morales Height Measured 2024-10-14 09:48:00 72.00 inches Manjeet Ledesma [place] Body Temperature 2024-10-14 09:48:00 98.50 degrees Manjeet Baltazar Andrew Heart Rate 2024-10-14 09:48:00 53.00 /min Filomena en F Andrew Respiratory Rate 2024-10-14 09:48:00 18.00 /min Manjeetroopa Morales BP Systolic 2023-08-15 17:20:00 144 mm[Hg] Step hen F Andrew BP Diastolic 2023-08-15 17:20:00 90 mm[Hg] Sharif phen F Andrew Weight Measured 2023-08-15 17:20:00 197.60 pounds Manjeetroopa Morales Height Measured 2023-08-15 17:20:00 72.00 inches Manjeet Morales Body Temperature 2023-08-15 17:20:00 98.20 degrees Manjeet Baltazar Morales Heart Rate 2023-08-15 17:20:00 75.00 /min Filomena en F Andrew Respiratory Rate 2023-08-15 17:20:00 18.00 /min Manjeet F Andrew BP Systolic 2020-12-15 10:46:00 138 mm[Hg] Step hen F Andrew BP Diastolic 2020-12-15 10:46:00 91 mm[Hg] Sharif phen F Andrew Weight Measured 2020-12-15 10:46:00 199.20 pounds Manjeet F Andrew Height Measured 2020-12-15 10:46:00 72.00 inches Manjeet F Andrew Body Temperature 2020-12-15 10:46:00 98.50 degrees Manjeet F Andrew Heart Rate 2020-12-15 10:46:00 59.00 /min Filomena en F Andrew Respiratory Rate 2020-12-15 10:46:00 17.00 /min Manjeet F Andrew BP Systolic 2020-06-12 14:18:00 143 mm[Hg] Step hen F Andrew BP Diastolic 2020-06-12 14:18:00 89 mm[Hg] Sharif phen F Andrew Weight Measured 2020-06-12 14:18:00 200.80 pounds Manjeet F Andrew Height Measured 2020-06-12 14:18:00 72.00 inches Manjeet F Andrew Body Temperature 2020-06-12 14:18:00 97.90 degrees Manjeet F Andrew Heart Rate 2020-06-12 14:18:00 69.00 /min Filomena en F Andrew Respiratory Rate 2020-06-12 14:18:00 Manjeet F Andrew BP Systolic 2020-01-05 09:32:00 133 mm[Hg] Step hen F Andrew BP Diastolic 2020-01-05 09:32:00 85 mm[Hg] Sharif phen F Andrew Weight Measured 2020-01-05 09:32:00 201.40 pounds Manjeet F Andrew Height Measured 2020-01-05 09:32:00 72.00 inches Manjeet F Andrew Body Temperature 2020-01-05 09:32:00 97.90 degrees Manjeet F Andrew Heart Rate 2020-01-05 09:32:00 59.00 /min Filomena en F Andrew Respiratory Rate 2020-01-05 09:32:00 16.00 /min Manjeet F Andrew BP Systolic 2018-06-16 09:23:00 130 mm[Hg] Step hen F Andrew BP Diastolic 2018-06-16 09:23:00 72 mm[Hg] Sharif Morales Weight Measured 2018-06-16 09:23:00 184.60 pounds Manjeet Morales Height Measured 2018-06-16 09:23:00 72.00 inches Manjeet Morales Body Temperature 2018-06-16 09:23:00 97.90 degrees Manjeet Morales Heart Rate 2018-06-16 09:23:00 72.00 /min Filomena Morales Respiratory Rate 2018-06-16 09:23:00 16.00 /min Manjeet Morales Procedures Procedure Date / Time Performed Performing Clinician Source XR LUMBAR SPINE 4 VW 2023-08-02 18:55:58 Crow Walters [facility] SURGICAL PATHOLOGY EXAM 2020-10-26 15:20:00 Mariano Menard [facility] COLONOSCOPY 2020-10-26 14:46:00 Tomi Menard [facility] COLONOSCOPY (ENDO) 2020-10-26 13:22:11 Self Refe rred, Facility Npi [facility] COLONOSCOPY (ENDO) 2020-10-26 13:22:11 Self Refe rred, Facility Npi [facility] ASSIGNMENT OF BENEFITS 2020-10-26 12:47:38 Docto r Unassigned, [place] [facility] COVID-19 (ID NOW RAPID TESTING) 2020-10-25 13:08:00 Tomi Menard [facility] ASSIGNMENT OF BENEFITS 2020-10-02 13:17:00 Docto r Unassigned, [place] [facility] Encounters Start Date/Time End Date/Time Encounter Type Admission Type Attending Clinicians Care Facility Care Department Encounter ID Source 2021-02-12 00:20:08 Outpatient R TOMI MENARD [facility] [id number] [facility] 2021-02-08 19:39:27 Outpatient R NORA WINTER [facility] [id number] [facility] 2024-10-16 09:05:41 2024-10-16 09:05:41 Outpatient SFA [facility] [id number] Manjeet Morales 2024-10-14 09:43:04 2024-10-14 09:43:[address] [facility] [id number] Manjeet Morales 2024-10-14 00:00:00 2024-10-14 00:00:[address] [facility] [id number] Manjeet Morales 2020-10-05 00:00:00 2024-08-05 21:46:17 Letter (Out) Tomi Menard [facility] [employer] DG ..114 350.1.13.10 4.2.7.2.686 [id number] [facility] 2023-08-15 17:13:47 2023-08-15 17:13:[address] [facility] [id number] Manjeet Morales 2023-08-15 00:00:00 2023-08-15 00:00:[address] [facility] [id number] Manjeet Morales 2023-08-13 00:00:00 2023-08-13 00:00:00 Letter (Out) Campaigns, Generic Provider [facility] ..114 350.1.13.10 4.2.7.2.686 [id number] [facility] 2023-08-02 13:20:00 2023-08-02 15:24:00 Emergency X LUCINA WALTERS ARSOHEILA ERT [id number] [facility] 2023-08-02 13:20:00 2023-08-02 15:24:00 Emergency Lucina Walters [facility] ..114 350.1.13.10 4.2.7.2.686 [id number] [facility] 2020-10-26 07:49:00 2020-10-26 11:55:00 Hospital Encounter Tomi Menard [facility] [employer] BLDG [id number] 350.1.13.10 4.2.7.2.686 [id number] [facility] 2020-10-26 09:00:00 2020-10-26 09:45:00 Surgery Tomi Menard [facility] 1..114 350.1.13.10 4.2.7.2.686 [id number] [facility] 2020-10-26 00:00:00 2020-10-26 00:00:00 Orders Only Doctor Unassigned, [place] [facility] 1..114 350.1.13.10 4.2.7.2.686 [id number] [facility] 2020-10-25 07:54:11 2020-10-25 08:09:11 Laboratory Only Only, Adc Test Tomi Menard [facility] 1..114 350.1.13.10 4.2.7.2.686 [id number] [facility] 2020-10-25 08:00:00 2020-10-25 08:00:00 Outpatient R [facility] [id number] [facility] 2020-10-04 00:00:00 2020-10-04 00:00:00 Nurse Triage Saima Arias [facility] 1.114 350.1.13.10 4.2.7.2.686 [id number] [facility] 2020-10-02 08:19:18 2020-10-02 08:34:18 Laboratory Only Only, Adc Test David Mcqueen [facility] 1..114 350.1.13.10 4.2.7.2.686 [id number] [facility] 2020-10-02 08:00:00 2020-10-02 08:00:00 Outpatient R [facility] [id number] [facility] 2020-10-02 00:00:00 2020-10-02 00:00:00 Orders Only Doctor Unassigned, [place] [facility] 1.114 350.1.13.10 4.2.7.2.686 [id number] [facility] 2019-10-22 10:00:00 2019-10-22 10:00:00 Outpatient DELONTE GRIGGS [facility] [id number] [facility] 2019-10-08 13:00:00 2019-10-08 13:00:00 Outpatient DELONTE GRIGGS [facility] [id number] [facility] 2019-09-22 08:15:00 2019-09-22 08:15:00 Outpatient RIAN ANGUIANO GABRIEL [facility] [id number] [facility] 2019-08-25 00:00:00 2019-08-25 00:00:00 Telephone Delonte Mack [facility] 1..114 350.1.13.10 4.2.7.2.686 [id number] [facility] 2019-08-25 00:00:00 2019-08-25 00:00:00 Telephone Delonte Mack [facility] 1.840.114 350.1.13.10 4.2.7.2.686 [id number] 2019-08-18 09:15:00 2019-08-18 09:15:00 Outpatient R [facility] [id number] [facility] 2019-08-18 08:45:00 2019-08-18 08:45:00 Outpatient R [facility] [id number] [facility] 2019-08-13 00:00:00 2019-08-13 00:00:00 Telephone Delonte Mack [facility] 1.114 350.1.13.10 4.2.7.2.686 [id number] [facility] 2019-08-13 00:00:00 2019-08-13 00:00:00 Telephone Delonte Mack [facility] 1.2840.114 350.1.13.10 4.2.7.2.686 [id number] 2019-08-10 00:00:00 2019-08-10 00:00:00 Telephone Delonte Mack [facility] 1.2840.114 350.1.13.10 4.2.7.2.686 [id number] [facility] 2019-08-06 07:50:58 2019-08-06 23:59:00 Outpatient R DELONTE MACK [facility] [id number] [facility] 2019-07-26 00:00:00 2019-07-26 00:00:00 Prep For Surgery Delonte Mack [facility] 1.2840.114 350.1.13.10 4.2.7.2.686 [id number] [facility] 2019-07-23 08:29:01 2019-07-23 08:59:01 Telemedici ne Visit Delonte Mack [facility] [place] [facility] 1.2840.114 350.1.13.10 4.2.7.2.686 [id number] [facility] Results Test Description Test Time Test Comments Results Resul t Comments Source XR LUMBAR SPINE 4 VW 2023-07-15 0 19:34:19 EXAM: XR LUMBAR SPINE 4 VW HISTORY: 53 years-old Male; Provided indication: pain . TECHNIQUE: Anterior and lateral views of the lumbar spine were obtained. COMPARISON: None. FINDINGS: No acute fracture or traumatic dislocation is visualized. Normal lumbarlordosis is preserved. The vertebral bodies are normal in height and innormal alignment. The intervertebral disc spaces are preserved. [facility] Manjeet MoralesCBC W/AUTO [id number] 00:00:00* Test Item Value Reference Range Interpretation Comme nts WBC (test code = 1001) 4.9 K/UL RBC (test code = 1002) 4.60 M/UL HEMOGLOBIN (test code = 1003) 13.5 G/DL HEMATOCRIT (test code = 1004) 40.1 % MCV (test code = 1005) 87.2 fL MCH (test code = 1006) 29.3 PG MCHC (test code = 1007) 33.7 G/DL RDW (test code = 1038) 14.0 % NEUTROPHILS (test code = 1008) 53.5 % LYMPHOCYTES (test code = 1010) 31.1 % MONOCYTES (test code = 1011) 10.9 % EOSINOPHILS (test code = 1012) 3.5 % BASOPHILS (test code = 1013) 0.8 % IMMATURE GRANULOCYTES (test code = 1036) 0.2 % NUCLEATED RBCS (test code = 1065) 0.0 /100WBC'S PLATELET COUNT (test code = 1015) 358 K/UL ABSOLUTE NEUTROPHILS (test c ode = 1066) 2.60 K/UL ABSOLUTE LYMPHOCYTES (test c ode = 1067) 1.51 K/UL ABSOLUTE MONOCYTES (test cod e = 1068) 0.53 K/UL ABSOLUTE EOSINOPHILS (test c ode = 1040) 0.17 K/UL ABSOLUTE BASOPHILS (test cod e = 1069) 0.04 K/UL ABS IMMATURE GRANULOCYTES (t est code = 1020) 0.01 K/UL ABS NUCLEATED RBCS (test cod e = 29143) 0.00 K/UL Manjeet [id number] 00:00:00* Test Item Value Reference Range Interpretation Comme nts TSH, THIRD GENERATION (test code = 2821) 0.546 UIU/ML Manjeet Ledesma [facility] W/AUTO [id number] 00:00:00* Test Item Value Reference Range Interpretation Comme nts WBC (test code = 1001) 4.9 K/UL RBC (test code = 1002) 4.60 M/UL HEMOGLOBIN (test code = 1003) 13.5 G/DL HEMATOCRIT (test code = 1004) 40.1 % MCV (test code = 1005) 87.2 fL MCH (test code = 1006) 29.3 PG MCHC (test code = 1007) 33.7 G/DL RDW (test code = 1038) 14.0 % NEUTROPHILS (test code = 1008) 53.5 % LYMPHOCYTES (test code = 1010) 31.1 % MONOCYTES (test code = 1011) 10.9 % EOSINOPHILS (test code = 1012) 3.5 % BASOPHILS (test code = 1013) 0.8 % IMMATURE GRANULOCYTES (test code = 1036) 0.2 % NUCLEATED RBCS (test code = 1065) 0.0 /100WBC'S PLATELET COUNT (test code = 1015) 358 K/UL ABSOLUTE NEUTROPHILS (test c ode = 1066) 2.60 K/UL ABSOLUTE LYMPHOCYTES (test c ode = 1067) 1.51 K/UL ABSOLUTE MONOCYTES (test cod e = 1068) 0.53 K/UL ABSOLUTE EOSINOPHILS (test c ode = 1040) 0.17 K/UL ABSOLUTE BASOPHILS (test cod e = 1069) 0.04 K/UL ABS IMMATURE GRANULOCYTES (t est code = 1020) 0.01 K/UL ABS NUCLEATED RBCS (test cod e = 65894) 0.00 K/UL [facility]esma [facility] [id number] 16:05:32* Test Item Value Reference Range Interpretation Comme nts Case Report (test code = 5954602372) Surgical Pathology ?Case: [id number] ? Authorizing Provider: ?Tomi Menard MD ? ? ?Collected: ? 10/26/2020 1020 ?Ordering Location: ? ? GI Endoscopy OR Department Received: ?10/26/2020 1416 ?Pathologist: ? Halima Crowe MD ? Specimen: ? ?LARGE INTESTINE, RIGHT-ASCENDING COLON, 1. ascending colon cold snare eval adenoma ? Final Diagnosis (test code = 9704188691) z7hegOXkKCEiq5plGDOxjBX uZzEwMzNcZnRuYmpcdWMxIH rdgxXdVMmojUnlKRZjJ8lxw iAcNGAcgKWiH9UuepbaEOcn XN9jSN5jqWpvoCTnwFLtXKX yOgQmy6cyf409kTHov5agHR UKjyoihTv7tZhuX40ee2D6D tmtV67fzBCsVYK1EZJuAHJb rYOpBABiLLC9LLLswZSkY6s aXDBeWB6hsrriDQbcXWhyNI CbrAG1JMRksJPqJ3NiWDPbJ UtoRGXrqfc6EhSsUw9hzEXc eTcyMFxwYXJkXHBsYWluXGZ gGtXqhECmLWF4ALLIJI7LNA AULNeZPCZGV5QOBpPOKspdG QWCIZLvH73SNpAoAX4XRKOA Q8GSEDj2BBLyumGbIEWoMD2 aAGJSXYmRZvXXFXCZC08CKZ TrvbpiFCB1w9ovsQOvGLPlq ZVnUdQjRKUqJNWer0zvGHDv bGFuZzEwMzNcZnRuYmpcdWM rFPNwVrHay1jfp916iQHnz5 bnOADpPzE3iCDoZVTdbRggj if8uWbtMvKsGDEsc9exrqNf OxPeACZtFIXoOPFnjXWhO23 1QFKaDDfvx9ehq7ZrDBRikQ Uzq7E8PUUGOUqzLbRgK275f 1iav5fukmDngWK5ECDdDKY0 FVixakPzsgU4SYdqmHJcGyW 1IDtccmVkMFxncmVlbjBcYm e4VLOeZ903PXV8uGghj1iaN OB9SQYjWWHuCfadWe2vmQBy K393TFWaKPPZHWPsiFp1TUA xlcQolwQgcWGGp872E817y1 paNPTmsbTnwEeIwcjxf6geZ 319XHBhcGVydzEyMjQwXHBh wBFnkEL4AZYcZK8uhybdGGd tKJlpONViynQ3YQRkoPHeE9 IwXODbYU1pgtoeTZJ8PUncG XQsPAM8JaZfMNXih5Qwqny6 JmNcwd4vkv00RJR5x9DlvXt wVDU8UIK9ZjWlBc9knWHrLR YvVH3jNeMtrNDkJCYpau62q CeiDTbklbAzzQ5oAnJhRCEk lOKuDTVeWG7krQZkIZCpkA9 ucmxjXHBnYnJkcmhlYWRccG owctMrOa7brEujNWA2MZtuV 1uciB8iIsT1JMyoL7syxL7g MDw8RIwxtOJ8IKIweO9uLS5 gwoeym2jsBHkzEJjbFGKopm L2giY9KCBhhVOgD4EasG6mU HZiQE2xwaewq9uzGNI3YSpz APBnDOK7VpSrYUNil0Phrge 0XmQfb6BvzKEmVViaJ35ti7 69CZGagyKxK5cfpYStwkdxw XYnwsxgIHxmdoC5HVPxUUSc YWluXGYxXGZzMjBcbGFuZzE wMzNcaGljaFxmMVxkYmNoXG KwVTsgN5bhEcNdQ9UjCZXtG bOdsVLrDUdgvSI5XIQjNCUq s36klHm9XPDgyjrvg8MwVLH nsXIvnNGvaP8vofGlj9pySG KxWEEwKOUhF2FpEPL7bDJdO MMsmMPaiPR9LO3ayuZbLK7g ZGUgYnkgcmVzaWRlbnRzLCB kXRaca6ejYV7gYWAxuTyhmM 1rhIE3ELLaw7jstATonAVkf 6rum6GociVxGTkiXAMgZBrk PZBuKLMzKO5vWSQmrJVtwwK jy1P7IewpdOObgmwmXylcrx N6MYcexgaiMSJjWYpgP7ebC pQnGMUjoNelOrgag7QtOKMz XGZzMjhccGFyfX0= Clinical Information (test code = 6011159012) Jelani Champion is a 50 year old male HX of Rectal pain [K62.89]Lower abdominal pain, unspecified [R10.30]Change in stool caliber [R19.5]Other constipation [K59.09]1. ascending colon cold snare eval adenoma Gross Description (test code = 7300318431) q4fvsXZrRKCiiSRJMRPzZ0y aduNpONBwvMNjV3YtunboPZ btNI0lIH1lmEndpJNdnNFaD R6PLWNgYcAqONCjzURnucGw OsNbCKPxfUYjiLQ6AAIaTF1 sjfolHActWXceINZgjzI5ZD PewJNcF5UpFJJwOG6ogkwwI EB5XJbgqO2qjaLVHcgfTf6a dHRibHtcZjFcZmNoYXJzZXQ oLRTrqFfeMPGiFWa6wW1ZTl olKDD3STYHBszfBLCjTC3Sd 2bmSXTwhJTxXSM6OOqcmABn SSIcOETaFCv1OWTcHFyerKC jWC0pcJvpUoqkoHuqd6VggZ BcXGlkIDUxMDAyIFxcZGIgI B2HLvRyRRtiDSv4ObHiMPe9 UPv4HI4BDrPuOSLhDVc1IYY eXIKzEPe2EUrdWQ7SLUIaXf k1FBN9QxSmNDF6FWMzYSa2H DIgXFxmIEFyaWFsIFxcZnMg LSFoCVlqfJEgQR0gxOvtmZJ pblxmczIwXHBhciANClxwbG FpblxlcGljTmVzdERvYzEgD QpcbHRycGFyXGxpbjBccmlu MCANClxsdHJjaFxmczIwIFN wZWNpbWVuIEEgaXMgcmVjZW q5KWYioJ8eIy6aqUAdeD2ym DImKLlaMLV6zLIaMEHdHVNe VPYsDG06B7ZrveThRVzeHWm gbnVtYmVyICJsYXJnZSBpbn Jxz6BnbjOdQFAiM8t7HZFbX 9DySXaeDpdxVRIdLN6cgN5j ANGbxD5mPVAwbBFlh82nihE gSGXopAUsYHGab69hYsEqnk ZjA42ve4lhsFGsb2CdzReoA SXxdo4ygu60blQ4eFYlqJGn KuTnR07dgmNwJNbezCnwiU5 vr6wnbMRgSia9WG5elzZzvb OialvqyoukNSSwINT0UESeM BK8VQGiTDYpnZOqeoPmTP45 CLlrZS9zFHriEU7cQZCbJWF 3aGljaCBhcmUgZmlsdGVyZW EgcXlvm5GinKFmXNGmw7Exl DMvMNohYM1zALP2Bd8wrFNy NEQrlmG3e4AmAXxlAPVzFcr fFZBnBDjxeGDwEW2VJ0R6sH YnQS2lKHfsYGDATLkIF0MRT XxwhU2sFZn8oHwjJW2kWLox XE5mgSXxWTZ1xE2sa0ogm0E qdePUb2Kmx4QjdwOrLVypzJ xirU5tZCEtP58yp9RQl1SeD SRyBFtmc8vgwFrbu6PdnTPh MLwcONTmqDWuOVbcnA4dTlQ gf0epzOn2YNezrnI7YTQrkf 5QZdzvtN8iNrAci4dxaIz0V CKETvjtsiD8u9hpsQjrk3Wm mCAiHA7WWo4= Disclaimer (test code = [id number]) s7kljBDjXJFbz3fnFYGqcCI uZzEwMzNcZnRuYmpcdWMxIH qyblDhCIijc2DgV8BoJmOjL FxhbnNpXGRlZmxhbmcxMDMz ZXI7akWaENIvKQyqVPBtYOe kRu4pkDEpuAvwYyUqSTPlr0 fjkxMYKJwzEzCwO407GGJnY Qegs1qvh2BaYFHpoHQro4Q7 LMQVhxcxjAf1fJgpO45kd0F 9PlztT7rwMEHaPHNaQ6JxRJ 7lSJZwCjl3FJC8BLP9LKOvH ZElR3IxFX6nDRWcdAKwHXu4 u0evqDanVYBcTAJ9h9zgBTv upcAwGP2hzp5qhCw2r0taqa OaVKXxWMAkhIELXVOpJ9Rdc FynAa6bhIw6sFjoMzyfHLY2 Yzo6WL2lqg24bjc2fAjvKNF eszorEdA5YOjcGSQshcauTV n4EVspGSZzaML1IGDzkFGfY 7SqZMKrKM0idej6MCZ8WLvr KCTdYcR6CKCbcQCcMRVzlPm iJKeol043VZL8AyIyVX0eB3 Qdz0N0lQ3iyTIdCVVwdUQaB uRaKPPvhx6djTZhHWemd5Kd EYC2ziZ3iROkpJFtECVqSA8 3Gsaws7OsKyljt9NxG51ocV U1IBxdv6daHK9uQgX1cxTeR Ckdz9ymkT0wIfI8STqhBN5o QE9rIYOsrS6jdwtcNKRxYkJ jvfhvHOYhnFsdoaEsOj7bwQ hpETO7PGvjG4ovxJ3vQaT3S DnnO3matR4cFOg6ZVkycQP8 VVYvxV3nRI0fjuamz1dlLOf jNHahUMDrcuJ5xmM0YPNrlK SyU0QdjS8vRRVlQH7rwvrkm 4jrAUE3ANgnQBSuRJZ7AdQc XNYku2Gtyrv1LjKgf9NuhQH aNPkaL72nx821LVOotlHqH6 xwbGFpblxwbGFpblxmMFxmc nX9KXKzgaCtk7RyQJGmZRZ2 BKvzZSafnHXuQDCczZjwp4i jC5TeaVLgFLPnYPcpJPMtUM ZzMjBcbGFuZzEwMzNcaGlja SxoYFczRcSaGQErVQcgF8qz YzChV1FtPWOhQsNqhXSxZ2o dTEmjgeCfHQVewkWblVM4DN huT5p4FNPfahPmrIj8ukEiJ sXtVHUnNKE9KOjlePQjTRFb d2KzhgrfzALcWq5uxZMwNKI bnA1zQVVfYRGzXFhtRE7pyH m6UGDTtGQqlUMiGyNLEMVtO W55wjWlTATRmggtw3N4BBzi AWGbu0JmdGKsR7kgz0XpJMM wj34lGB3jd8G6b7nqHFS5HS 5mj1ZyMPDfmECfqDZvCPIki 3Mpqjrbz0JkBZTohnXvv2Ay ZCBhbmQgaXRzIHBlcmZvcm1 rinLpSBYtLTQlB6LnlubdgH viltTmVOLkoi2snkMwYAI4C ZYDJUKgAKWfn7QlkV6bgKTD EKI3wSSlqz6bieZDyWZdJLH vbq60SXSxOK4pE6bfZZVbBC OspiIwcPTgz7LoFBOgmSP5c IYmHH5NZjCXi90cXHGpZACY wnBrSNVhnNnsnPL2owG7sX9 uIChGREEpLlx+IFRoZSBGRE OwEC7vssApn1EugzFpcXdgC IYcaYMfj2ZskLYxe7PpiFup x4EwrJYyxHVjDI9dPXZqmnr bFSAlXZGPLhAYZMWowzM7p1 XzGCXoTZDiKTO8uBtwmci5U ZXnuE6fKICxM6mzgaayOFfu QPZcd7XveH4djZDMsBPiq3T frCQfaUJIiMViBC7csvKwRN iFIMgAIOS1vrSrGEOuj2BkF GooG1naX30tbLwaiTm9dME3 FCU0kZ8bJlm+IFxwYXJccGF yIEFwcHJvcHJpYXRlbHkgcm CzC0KtelWsiT7zeGLhrmGrZ Y9aCW9nS2H0pKFzJXQfwlOf t2uvQWjpiqDzJuBlcwDfCTK yYDlzIXXdq6TsQLhmVEW9JI lucyBpbmNsdWRpbmcgSCZFL WREoFKoyGFfAJN5NVbwqbHy ulIcEM9aoZ6kyTvgeS1gzOJ bbGI5eynvLTRrHLPwkHnhST LsAR5ruRQrSWHlybTJzArta SNhuP0yG4OnFHBiHGBofo7m ZHPllW6uYNcee8TtnpxxWBH nZSIgFFAexdGazs2lEUCmeC GBDP1QQCdicSWfz7MbceHjM 8jXCIF1PKCaRpAbZpezVXWe mHAvoTPoSVMwmb74MHJvyB0 qqNvlXRTdvP8xkC3yuWamfX 6kXoTnRdBkLOcrBI3nFEMuP 1krzSPzMBUqLEUnX4taVtMs nF1ncDylWZwoCqFlWlCmRDb fFMU2pZ== Embedded Images (test code = 0373821765) [facility]2020-10-25 13:51:22* Test Item Value Reference Range Interpretation Comme nts SARS-CoV-2 Rapid ID NOW (test code = 41104-9) Not Detected Not Detected NELLY (test code = NELLY) ID NOW COVID-19 As say is an isothermal nucleic acid amplification test intended for the qualitative detection of nucleic acid from SARS-CoV-2 viral RNA in nasopharyngeal (BRICK[employer] SEWER) specimens. It is used under Emergency Use [...] patient testing if clinically indicated. Lab Interpretation (test code = 01776-5) [facility] [id number] 00:00:00* Test Item Value Reference Range Interpretation Comme nts GLUCOSE (test code = 2217) 95 MG/DL BUN (test code = 2208) 11 MG/DL CREATININE (test code = 2214) 1.02 MG/DL eGFR AMER. (test cod e = 85142) 101 ML/MIN/1.73 eGFR NON- AMER. (test code = 84571) 87 ML/MIN/1.73 CALC BUN/CREAT (test code = 2235) 11 RATIO SODIUM (test code = 2231) 142 MEQ/L POTASSIUM (test code = 2228) 4.6 MEQ/L CHLORIDE (test code = 2215) 103 MEQ/L CARBON DIOXIDE (test code = 2206) 28 MEQ/L CALCIUM (test code = 2209) 9.8 MG/DL PROTEIN, TOTAL (test code = 2229) 7.5 G/DL ALBUMIN (test code = 2201) 4.7 G/DL CALC GLOBULIN (test code = 2240) 2.8 G/DL CALC A/G RATIO (test code = 2234) 1.7 RATIO BILIRUBIN, TOTAL (test code = 2207) <0.2 MG/DL ALKALINE PHOSPHATASE (test code = 2204) 73 U/L AST (test code = 2218) 20 U/L ALT (test code = 2219) 18 U/L Manjeet MoralesLIPID [id number] 00:00:00* Test Item Value Reference Range Interpretation Comme nts CHOLESTEROL (test code = 2210) 195 MG/DL TRIGLYCERIDES (test code = 2232) 106 MG/DL HDL CHOLESTEROL (test code = 2220) 69 MG/DL CALC LDL CHOL (test code = 2237) 105 MG/DL RISK RATIO LDL/HDL (test cod e = 2238) 1.52 RATIO Manjeet Ledesma AndrewCBC W/AUTO [id number] 00:00:00* Test Item Value Reference Range Interpretation Comme nts WBC (test code = 1001) 4.6 K/UL RBC (test code = 1002) 4.79 M/UL HEMOGLOBIN (test code = 1003) 14.8 G/DL HEMATOCRIT (test code = 1004) 43.0 % MCV (test code = 1005) 89.8 fL MCH (test code = 1006) 30.9 PG MCHC (test code = 1007) 34.4 G/DL RDW (test code = 1038) 12.3 % NEUTROPHILS (test code = 1008) 51.0 % LYMPHOCYTES (test code = 1010) 33.5 % MONOCYTES (test code = 1011) 11.6 % EOSINOPHILS (test code = 1012) 2.8 % BASOPHILS (test code = 1013) 1.1 % PLATELET COUNT (test code = 1015) 311 K/UL Manjeet Ledesma AndrewACUTE HEPATITIS [id number] 00:00:00* Test Item Value Reference Range Interpretation Comme nts HEPATITIS A IgM (test code = 16559) NON-REACTIVE HEPATITIS B CORE IgM (test c ode = 4644) NON-REACTIVE HEPATITIS B SURF AG (test co de = 0319) NON-REACTIVE HEPATITIS C ANTIBODY (test c ode = 4608) NON-REACTIVE HCV INDEX (test code = 14082) 0.14 INTERPRETATION HEPATITIS A: (test code = 2552) (NOTE) INTERPRETATION HEPATITIS B: (test code = 58715) (NOTE) INTERPRETATION HEPATITIS C: (test code = 35966) (NOTE) Manjeetroopa MoralesPSA, [id number] 00:00:00* Test Item Value Reference Range Interpretation Comme nts PSA, TOTAL (test code = 2606) 0.40 NG/ML Manjeet MoralesCOMPREHENSIVE METABOLIC [id number] 00:00:00* Test Item Value Reference Range Interpretation Comme nts GLUCOSE (test code = 2217) 95 MG/DL BUN (test code = 2208) 11 MG/DL CREATININE (test code = 2214) 1.02 MG/DL eGFR AMER. (test cod e = 19258) 101 ML/MIN/1.73 eGFR NON- AMER. (test code = 97004) 87 ML/MIN/1.73 CALC BUN/CREAT (test code = 2235) 11 RATIO SODIUM (test code = 2231) 142 MEQ/L POTASSIUM (test code = 2228) 4.6 MEQ/L CHLORIDE (test code = 2215) 103 MEQ/L CARBON DIOXIDE (test code = 2206) 28 MEQ/L CALCIUM (test code = 2209) 9.8 MG/DL PROTEIN, TOTAL (test code = 2229) 7.5 G/DL ALBUMIN (test code = 2201) 4.7 G/DL CALC GLOBULIN (test code = 2240) 2.8 G/DL CALC A/G RATIO (test code = 2234) 1.7 RATIO BILIRUBIN, TOTAL (test code = 2207) <0.2 MG/DL ALKALINE PHOSPHATASE (test code = 2204) 73 U/L AST (test code = 2218) 20 U/L ALT (test code = 2219) 18 U/L Manjeet MoralesLIPID [id number] 00:00:00* Test Item Value Reference Range Interpretation Comme nts CHOLESTEROL (test code = 2210) 195 MG/DL TRIGLYCERIDES (test code = 2232) 106 MG/DL HDL CHOLESTEROL (test code = 2220) 69 MG/DL CALC LDL CHOL (test code = 2237) 105 MG/DL RISK RATIO LDL/HDL (test cod e = 2238) 1.52 RATIO Manjeet MoralesCBC W/AUTO [id number] 00:00:00* Test Item Value Reference Range Interpretation Comme nts WBC (test code = 1001) 4.6 K/UL RBC (test code = 1002) 4.79 M/UL HEMOGLOBIN (test code = 1003) 14.8 G/DL HEMATOCRIT (test code = 1004) 43.0 % MCV (test code = 1005) 89.8 fL MCH (test code = 1006) 30.9 PG MCHC (test code = 1007) 34.4 G/DL RDW (test code = 1038) 12.3 % NEUTROPHILS (test code = 1008) 51.0 % LYMPHOCYTES (test code = 1010) 33.5 % MONOCYTES (test code = 1011) 11.6 % EOSINOPHILS (test code = 1012) 2.8 % BASOPHILS (test code = 1013) 1.1 % PLATELET COUNT (test code = 1015) 311 K/UL Manjeet MoralesACUTE HEPATITIS [id number] 00:00:00* Test Item Value Reference Range Interpretation Comme nts HEPATITIS A IgM (test code = 02429) NON-REACTIVE HEPATITIS B CORE IgM (test c ode = 4644) NON-REACTIVE HEPATITIS B SURF AG (test co de = 2739) NON-REACTIVE HEPATITIS C ANTIBODY (test c ode = 4675) NON-REACTIVE HCV INDEX (test code = 91332) 0.14 INTERPRETATION HEPATITIS A: (test code = 2552) (NOTE) INTERPRETATION HEPATITIS B: (test code = 11620) (NOTE) INTERPRETATION HEPATITIS C: (test code = 15258) (NOTE) Manjeet Stephen, [id number] 00:00:00* Test Item Value Reference Range Interpretation Comme nts PSA, TOTAL (test code = 2606) 0.40 NG/ML Manjeet Ledesma Andrew Notes Date/Time Note Provider Source Manjeet Lucio [facility]2024-05-03 00:00:00 Manjeet Lucio [facility]2024-04-20 14:47:34 Pt discharged with diagnosis of acute bilateral low back pain without sciatica. Printed and verbal instructions reviewed with and given to pt. Prescriptions given x 3. Pt verbalized understanding of teaching, medications, and recommended follow-up. Denies questions or concerns at this time. Pt ambulatory at discharge. Appears in no apparent distress. No ataxia noted. Liya Centeno [facility]NR[facility] [id number] 13:18:22 Patient reports that since Friday morning he has been having pain in his lower back. Reports having worked out on Friday and did not do anything differently at the gym. Patient taking Motrin for pain and reports that the pain eases up, does not go away and then returns. Jany Meyer [facility] - [id number] 13:14:00 [facility] Emergency Department Note Patient Name: Jelani Champion Date of : 1970 53 year old male Treatment Room: [facility] ED [facility] Primary Care Physician: PATIENT DOES NOT HAVE A PCP Patient Escorted by: Self [9] Mode of Arrival: Personal means [1] EMS Treatment Prior to ED Arrival: Travel and Exposure Screening: Symptoms Does patient have any of these symptoms?: (not recorded) Exposure Screening Has patient had contact with someone with a communicable disease in the last month?: (not recorded) Diseases exposed to:: (not recorded) Is Patient ?: (not recorded) Exposure Date: (not recorded) Chief Complaint: Chief Complaint Patient presents with LOW BACK PAIN History of Present Illness: Jelani Champion is a 53 year old male with low back strain after over exertion at the gym. No numbness or radiculopathy. No urinary retention. Using ibuprofen intermittently. No fever. Past Medical History/Immunizations: No past medical history on file. Allergies: No Known Allergies Past Social History: Tobacco Use Smoker, Current Status Unknown Smokeless Tobacco: Current user of smokeless tobacco. Past Surgical History: Past Surgical History: Procedure Laterality Date COLONOSCOPY N/A 10/26/2020 Surgeon: Tomi Menard MD; Location: Endoscopy () OR Location Review of Systems: Review of Systems Constitutional: Negative for activity change, appetite change, chills, diaphoresis and fever. HENT: Negative for sore throat and voice change. Eyes: Negative for pain and visual disturbance. Respiratory: Negative for cough, chest tightness and shortness of breath. Cardiovascular: Negative for chest pain and leg swelling. Gastrointestinal: Negative for abdominal pain, blood in stool, constipation and diarrhea. Genitourinary: Negative for dysuria, urgency and difficulty urinating. Musculoskeletal: Positive for back pain. Skin: Negative for color change, rash and wound. Neurological: Negative for dizziness and headaches. Hematological: Does not bruise/bleed easily. Physical Exam: ED Triage Vitals [08/02/23 1319] Weight 88.9 kg (196 lb) Actual or estimated Estimated by patient/family report Height 1.803 m (5' 11") BP 134/77 Pulse 68 Resp 20 Temp 36.9 ?C (98.4 ?F) Temp source Oral SpO2 100 % Measured on Room air Physical Exam Vitals and nursing note reviewed. Constitutional: Appearance: He is well-developed. HENT: Head: Normocephalic and atraumatic. Eyes: General: No scleral icterus. Conjunctiva/sclera: Conjunctivae normal. Pupils: Pupils are equal, round, and reactive to light. Neck: Vascular: No JVD. Cardiovascular: Rate and Rhythm: Normal rate and regular rhythm. Heart sounds: Normal heart sounds. Pulmonary: Effort: Pulmonary effort is normal. Breath sounds: Normal breath sounds. No stridor. Abdominal: General: Bowel sounds are normal. Palpations: Abdomen is soft. Musculoskeletal: General: Tenderness (right lower back / paraspinal spasm) present. Normal range of motion. Cervical back: Normal range of motion and neck supple. Skin: General: Skin is warm and dry. Neurological: Mental Status: He is alert and oriented to person, place, and time. Psychiatric: Behavior: Behavior normal. Thought Content: Thought content normal. Radiology: XR LUMBAR SPINE 4 VW Final Result EXAM: XR LUMBAR SPINE 4 VW HISTORY: 53 years-old Male; Provided indication: pain . TECHNIQUE: Anterior and lateral views of the lumbar spine were obtained. COMPARISON: None. FINDINGS: No acute fracture or traumatic dislocation is visualized. Normal lumbar lordosis is preserved. The vertebral bodies are normal in height and in normal alignment. The intervertebral disc spaces are preserved. IMPRESSION No acute osseous abnormality. Preliminary Report Dictated by Resident: Jose Valenzuela I, Cullen Trivedi MD., have reviewed this study and agree with the above report. Lab Results: Lab Results - No data to display EKG: If EKG completed, see Procedure Note. Orders and Treatments: Orders Placed This Encounter Procedures XR LUMBAR SPINE 4 VW Orders Placed This Encounter Medications naproxen sodium 550 mg tablet methylPREDNISolone 4 mg tablets methocarbamoL 500 mg tablet First Provider Eval: ED Events None ED COURSE Diagnosis/Impression as of 08/02/23 1439 Acute bilateral low back pain without sciatica Procedures: Procedures Osteopathic evaluation and treatment. Patient was evaluated in the prone and seated position. Styles screen performed. Tissue texture changes and fullness were appreciated in the right SI joint. Right lumbar spine. Evaluation of the lumbar region demonstrated a group curve L3-5 SLRR. Thoracic spine demonstrated compensatory spasm. Paraspinal spasm was appreciated. HVLA was performed to lumbar and thoracic spine. Patient tolerated procedure well. Increased ROM post procedure. Pain improved MDM: Medical Decision Making Patient had non-traumatic back pain. No hx of IVDA, immunocompromise, fever, saddle signs, or urinary complaints. Will manage medically with Anaprox, medrol, robaxin. Encourage movement. Follow up with PCP if symptoms persist for further diagnostic workup and consideration of OP MRI. Problems Addressed: Acute bilateral low back pain without sciatica: acute illness or injury Amount and/or Complexity of Data Reviewed Radiology: ordered. Risk Prescription drug management. Flowsheet Documentation: Scoring Tools: No data recorded Disposition/Condition: ED Disposition ED Disposition Disch - Home Condition Stable Comment -- Discharge Medications: Patient's Medications START taking these medications METHOCARBAMOL 500 MG TABLET Take 1 tablet by mouth in the morning and 1 tablet at noon and 1 tablet in the evening. Do all this for 5 days. METHYLPREDNISOLONE 4 MG TABLETS Take by mouth SEE-INSTRUCTIONS. follow package directions NAPROXEN SODIUM 550 MG TABLET Take 1 tablet by mouth in the morning and 1 tablet in the evening. Take with meals. CONTINUE taking these medications which have NOT CHANGED PEG-ELECTROLYTE SOLN [id number] -5.86 GRAM SOLUTION Take as directed START taking Modified Medications as Prescribed No medications on file STOP taking these medications No medications on file Follow-up: Contact information for follow-up [facility] MD Specialty: AN-ANESTHESIOLOGY [id number] [place] [address] [facility] [id number] [facility]Emergency Department Specialty: Emergency Medicine [address] [facility] [address] Instructions: If symptoms worsen as documented in the discharge Electronically signed by: Lucina Walters DO 08/02/23 1439 [facility]
--- NOTE | 2025-01-31 12:22 | RAD REPORT ---
EXAMINATION: ONE VIEW CHEST XR CLINICAL INDICATION: CHEST PAIN TECHNIQUE: Frontal chest projection is submitted. Examination is limited by patient positioning and t echnique. COMPARISON: 06/20/2022 FINDINGS: The lungs are well inflated and clear. The heart is normal in size. No displaced fractures identified . IMPRESSION: No acute intrathoracic abnormalities.
[2025-01-31 12:42] LABS: Absolute Lymphocytes (CBC) 1.6 K/uL (0.7-4.9); Hematocrit 39.8 % (39.6-49.0); Hemoglobin 13.3 g/dL (13.6-17.9); MCH 30.4 pg (27.0-35.0); MCHC 33.4 g/dL (32.0-36.0); MCV 90.9 fL (80-100); MPV 7.5 fL (7.6-11.3); Nucleated RBC Absolute Count 0.0 (0-0); Nucleated Red Blood Cells % 0.1 % (0-0); RBC Red Blood Cell Count 4.38 M/uL (4.33-5.43); White Blood Count 4.90 thou/uL (4.3-10.9)
[2025-01-31 13:02] LABS: Anion Gap 5.7 mEq/L (5.0-15.0); BUN Blood Urea Nitrogen 11.0 mg/dL (7-18); Glucose Level 90.0 mg/dL (74-106); Potassium 3.7 mEq/L (3.5-5.1); Troponin High Sensitivity 15.2 pg/mL (<58.9)
[2025-01-31] MEDS ORDERED: CYCLOBENZAPRINE 10 MG TAB ONE (14:18)
[2025-01-31] MEDS ORDERED: HYDROCODONE/APAP 5/325 MG TAB ONE (14:19)
--- NOTE | 2025-01-31 14:55 | ER ---
Nurse's Notes [facility] Name: Jelani Vázquez Age: 54 yrs Sex: Male : 1970 Arrival Date: 01/31/2025 Time: 11:26 Bed 26 Private MD: Diagnosis: Costochondritis Presentation: 01/31 12:03 Chief complaint: Patient states: CHEST PAIN THAT RADIATES TO LT ARM AND UPPER BACK THAT dd2 BEGAN WHILE CHANGING RADIATOR FLUID ON HIS TRUCK AT 7AM. Coronavirus screen: At this time, the client does not indicate any symptoms associated with coronavirus-19. Ebola Screen: No symptoms or risks identified at this time. Initial Sepsis Screen: Does the patient meet any 2 criteria? No. Patient's initial sepsis screen is negative. Does the patient have a suspected source of infection? No. Patient's initial sepsis screen is negative. Risk Assessment: Do you want to hurt yourself or someone else? Patient reports no desire to harm self or others. Onset of symptoms was January 31, 2025 at 07:00. 12:03 Method Of Arrival: Ambulatory dd2 12:03 Acuity: GINNA 3 dd2 Triage Assessment: 12:09 General: Appears in no apparent distress. uncomfortable, Behavior is calm, cooperative, dd2 appropriate for age. Pain: Complains of pain in chest Pain radiates to thoracic area and left arm Pain currently is 4 out of 10 on a pain scale. Cardiovascular: Reports chest pain, Chest pain is described as mild. Historical: - Allergies: 12:09 No Known Allergies; dd2 - PMHx: 12:09 Hypercholesterolemia; dd2 - PSHx: 12:09 None; dd2 - Immunization history:: Adult Immunizations unknown. - Infectious Disease History:: Denies. - Social history:: Smoking status: Patient reports the use of cigarette tobacco products, smokes one-half pack cigarettes per day. Screenin:27 [facility] ED Fall Risk Assessment (Adult) History of falling in the last 3 months, kj2 including since admission No falls in past 3 months (0 pts) Confusion or Disorientation No (0 pts) Intoxicated or Sedated No (0 pts) Impaired Gait No (0 pts) Mobility Assist Device Used No (0 pt) Altered Elimination No (0 pt) Score/Fall Risk Level 0 - 2 = Low Risk Maintained a safe environment, Hourly rounding (assess needs \T\ fall precautionary measures) done. Abuse screen: Denies threats or abuse. Denies injuries from another. Nutritional screening: No deficits noted. Tuberculosis screening: No symptoms or risk factors identified. Assessment: 14:26 General: Appears in no apparent distress. Behavior is cooperative. Pain: Complains of kj2 pain in left arm and back and chest Pain currently is 4 out of 10 on a pain scale. Pain began suddenly. Pain: Pain radiates to left arm. Neuro: Level of Consciousness is awake, alert, obeys commands, Oriented to person, place, time, situation. Cardiovascular: Patient's skin is warm and dry. Respiratory: Airway is patent Respiratory effort is unlabored. GI: No signs and/or symptoms were reported involving the gastrointestinal system. : No signs and/or symptoms were reported regarding the genitourinary system. 14:55 Reassessment: Patient appears in no apparent distress at this time. Patient and/or kj2 family updated on plan of care and expected duration. Pain level reassessed. Vital Signs: 12:03 BP 150 / 96; Pulse 53; Resp 16; Temp 98.1; Pulse Ox 100% on R/A; Weight 90.72 kg; dd2 Height 5 ft. 11 in. ; Pain 4/10; 14:55 BP 144 / 88; Pulse 54; Resp 18; Temp 98.1; Pulse Ox 100% ; kj2 12:03 Body Mass Index 27.89 (90.72 kg, 180.34 cm) dd2 12:03 Pain Scale: Adult dd2 ED Course: 11:29 Patient arrived in ED. al6 11:31 Blayne Maher FNP-C is PHCP. dr5 11:31 Sahra Valenzuela MD is Attending Physician. dr5 11:55 XRAY Chest (1 view) In Process Unspecified. EDMS 12:08 Triage completed. dd2 12:09 Arm band placed on right wrist. EKG completed in triage. Results shown to . dd2 12:33 Initial lab(s) drawn, by me, sent to lab. EKG done, by ED staff, reviewed by Blayne RENDON. Inserted saline lock: 20 gauge in left forearm, using aseptic technique. Blood collected. Flushed with 10 mL NS. 12:33 Missed attempt(s): 20 gauge in right antecubital area. Bleeding controlled, band aid ts3 applied, catheter tip intact. 14:15 Esperanza Engle, RN is Primary Nurse. kj2 14:28 Patient has correct armband on for positive identification. Bed in low position. Call kj2 light in reach. Provided Education on: call light. Client placed on continuous cardiac and pulse oximetry monitoring. NIBP monitoring applied. technician anatomic pathology on. Pulse ox on. NIBP on. 14:29 No provider procedures requiring assistance completed. Patient maintains SpO2 kj2 saturation greater than 95% on room air. 14:57 IV discontinued, intact, bleeding controlled, No redness/swelling at site. Pressure kj2 dressing applied. Administered Medications: 14:25 Drug: Dexamethasone IM 10 mg IM once Route: IM; Site: left deltoid; kj2 14:56 Follow up: Response: No adverse reaction kj2 14:26 Drug: HYDROcodone-acetaminophen PO 5 mg-325 mg 2 tabs PO once Route: PO; kj2 14:56 Follow up: Response: No adverse reaction kj2 14:26 Drug: Cyclobenzaprine PO 10 mg PO once Route: PO; kj2 14:56 Follow up: Response: No adverse reaction kj2 Medication: 14:30 VIS not applicable for this client. kj2 Outcome: 14:55 Discharge ordered by . dr5 14:57 Discharged to home ambulatory, kj2 14:57 Condition: stable 14:57 Discharge instructions given to patient, Instructed on discharge instructions, follow up and referral plans. Demonstrated understanding of instructions, follow-up care, 15:06 Patient left the ED. kj2 Signatures: Dispatcher [employer] EDMS Esperanza Engle, ANUPAM RN kj2 CHERRI MURRELL RN RN dd2 Blayne Maher, CHIKIS-C DEPILATORY PAINTER-5 Kalee Santo al6 Alexandra Unger ts3 Corrections: (The following items were deleted from the chart) 12:10 12:09 Cardiovascular: Reports chest pain, dd2 dd2
--- NOTE | 2025-01-31 14:55 | EDPHYS ---
Physician Documentation [facility] Name: Jelani Vázquez Age: 54 yrs Sex: Male : 1970 Arrival Date: 01/31/2025 Time: 11:26 Bed 26 Private MD: ED Physician Sahra Valenzuela HPI: 01/31 14:56 This 54 yrs old Black Male presents to ER via Ambulatory with complaints of Chest Pain. dr5 14:56 Onset: The symptoms/episode began/occurred this morning. 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 Patient reports he lifted up to grab jordan and pulled it down when the pain started. Patient reports his pain has alleviated and improved since he got to the ER. Patient wants to make sure is not his heart. No medications given prior to arrival.. Historical: - Allergies: 12:09 No Known Allergies; dd2 - PMHx: 12:09 Hypercholesterolemia; dd2 - PSHx: 12:09 None; dd2 - Immunization history:: Adult Immunizations unknown. - Infectious Disease History:: Denies. - Social history:: Smoking status: Patient reports the use of cigarette tobacco products, smokes one-half pack cigarettes per day. ROS: 14:56 Constitutional: as per hpi dr5 Exam: 14:56 Constitutional: This is a well developed, well nourished patient who is awake, alert, dr5 and in no acute distress. Head/Face: Normocephalic, atraumatic. Eyes: Pupils equal round and reactive to light, extra-ocular motions intact. Lids and lashes normal. Conjunctiva and sclera are non-icteric and not injected. Cornea within normal limits. Periorbital areas with no swelling, redness, or edema. Neck: Trachea midline, no thyromegaly or masses palpated, and no cervical lymphadenopathy. Supple, full range of motion without nuchal rigidity, or vertebral point tenderness. No Meningismus. Chest/axilla: Normal chest wall appearance and motion. Nontender with no deformity. No lesions are appreciated. Cardiovascular: Regular rate and rhythm with a normal S1 and S2. Normal PMI, no JVD. No pulse deficits. Respiratory: Lungs have equal breath sounds bilaterally, clear to auscultation. No rales, rhonchi or wheezes noted. No increased work of breathing, no retractions or nasal flaring. Back: No spinal tenderness. No costovertebral tenderness. Full range of motion. Skin: Warm, dry with normal turgor. Normal color with no rashes, no lesions, and no evidence of cellulitis. MS/ Extremity: Pulses equal, no cyanosis. Neurovascular intact. Full, normal range of motion. Neuro: Awake and alert, GCS 15, oriented to person, place, time, and situation. Cranial nerves II-XII grossly intact. Motor strength 5/5 in all extremities. Sensory grossly intact. Cerebellar exam normal. Normal gait. Vital Signs: 12:03 BP 150 / 96; Pulse 53; Resp 16; Temp 98.1; Pulse Ox 100% on R/A; Weight 90.72 kg; dd2 Height 5 ft. 11 in. ; Pain 4/10; 14:55 BP 144 / 88; Pulse 54; Resp 18; Temp 98.1; Pulse Ox 100% ; kj2 12:03 Body Mass Index 27.89 (90.72 kg, 180.34 cm) dd2 12:03 Pain Scale: Adult dd2 MDM: 11:31 Medical Screening Exam initiated dr5 14:56 Differential diagnosis: viral Infection, bacterial infection, STEMI, NSTEMI, pneumonia, dr5 costochondritis, electrolyte abnormality. Data reviewed: vital signs, nurses notes, lab test result(s), cardiac enzymes, troponin i, CBC, white blood cell count, hemoglobin, hematocrit, platelets, electrolytes, sodium, potassium, chloride, serum bicarbonate, BUN, creatinine, serum glucose, EKG, radiologic studies. Consideration of Admission/Observation Escalation of care including admission/observation considered. Escalation considered patient found to have elevated troponin. I considered the following discharge prescriptions or medication management in the emergency department I discussed and recommended Over The Counter medications, Medications were administered in the Emergency Department. See MAR. Independent interpretation of the following test(s) in the Emergency Department X-Ray: My interpretation is Independent interpretation of chest x-ray does not reveal infiltrates concerning for pneumonia.. Care significantly affected by the following chronic conditions: HLD. Care significantly affected by the following Social Determinants of Health: Poor access to healthcare and/or lack of insurance, Poor access to transportation, Problems related to employment. Scoring Tools HEART Score: History: ECG: Age: Risk Factors: 1 or 2 risk factors (1), Troponin: Total Score = 2. Counseling: I had a detailed discussion with the patient and/or guardian regarding the historical points, exam findings, and any diagnostic results supporting the discharge/admit diagnosis, the presence of at least one elevated blood pressure reading (>120/80) during this emergency department visit, lab results, radiology results, the need for outpatient follow up, for definitive care, a family practitioner, to return to the emergency department if symptoms worsen or persist or if there are any questions or concerns that arise at home. Medication response: Dexamethasone, Cyclobenzaprine, [place]. Response to treatment: the patient's symptoms have markedly improved after treatment. Special discussion: I discussed with the patient/guardian in detail that at this point there is no indication for admission to the hospital. It is understood, however, that if the symptoms persist or worsen the patient needs to return immediately for re-evaluation. Based on the history and exam findings, there is no indication for further emergent testing or inpatient evaluation. I discussed with the patient/guardian the need to see the primary care provider for further evaluation of the symptoms. ED course: Will have patient follow-up primary care doctor. All labs and chest x-ray results given to patient take with your primary care doctor. Recommended patient obtain Tylenol which is needed for pain and fever. All question answered. Stricter ER precautions given. 01/31 11:32 Order name: Basic Metabolic Panel; Complete Time: 13:36 01/31 11:32 Order name: CBC with Diff; Complete Time: 13:36 [facility] 01/31 11:32 Order name: Troponin HS; Complete Time: 13:36 [facility] 01/31 11:32 Order name: XRAY Chest (1 view); Complete Time: 12:24 [facility] 01/31 11:32 Order name: EKG; Complete Time: 11:33 01/31 11:32 Order name: Cardiac monitoring; Complete Time: 14:38 [facility] 01/31 11:32 Order name: EKG - Nurse/Tech; Complete Time: 12:17 [facility] 01/31 11:32 Order name: IV Saline Lock; Complete Time: 12:17 [facility] 01/31 11:32 Order name: Labs collected and sent; Complete Time: 12:18 [facility] 01/31 11:32 Order name: O2 Per Protocol; Complete Time: 14:39 dr5 01/31 11:32 Order name: O2 Sat Monitoring; Complete Time: 14:39 dr5 EC:11 Rate is 49 beats/min. Rhythm is regular. QRS [place] is Normal. OK interval is normal at dr5 152 msec. QRS interval is normal at 86 msec. QT interval is normal at 444 msec. Clinical impression: Sinus bradycardia and No evidence of ischemia. Administered Medications: 14: Drug: Dexamethasone IM 10 mg IM once Route: IM; Site: left deltoid; kj2 14:56 Follow up: Response: No adverse reaction kj2 14:26 Drug: HYDROcodone-acetaminophen PO 5 mg-325 mg 2 tabs PO once Route: PO; kj2 14:56 Follow up: Response: No adverse reaction kj2 14:26 Drug: Cyclobenzaprine PO 10 mg PO once Route: PO; kj2 14:56 Follow up: Response: No adverse reaction kj2 Disposition Summary: 01/31/25 14:55 Discharge Ordered Notes: Location: Home dr5 Condition: Stable dr5 Diagnosis - Costochondritis dr5 Followup: dr5 - With: Emergency Department - When: As needed - Reason: Worsening of condition Followup: dr5 - With: Private Physician - When: 1 - 2 days - Reason: Recheck today's complaints, Continuance of care, Re-evaluation by your physician Discharge Instructions: - Discharge Summary Sheet dr5 - Costochondritis, [id number] dr5 Forms: - Work release form dr5 - Medication Reconciliation Form dr5 - Antibiotic Education dr5 - Patient Portal Instructions dr5 - Leadership Thank You Letter dr5 Prescriptions: - Cyclobenzaprine 10 mg Oral Tablet - take 1 tablet ORAL route every 8 hours As needed; 30 tablet; Refills: 0, dr5 Product Selection Permitted - Medrol (Shamar) 4 mg Oral Tablets, Dose Pack - take 1 tablet ORAL route as directed - follow package instructions; 1 packet; dr5 Refills: 0, Product Selection Permitted Signatures: Dispatcher [employer] [address] RN RN kj2 CHERRI MURRELL RN RN dd2 Blayne Maher, CHIKIS-C [employer] CASE MANAGER-Cdr5
[2025-01-31 19:13] VITALS: TEMP 98.1; O2SAT 100
[2025-01-31 19:18] VITALS: BP 144/88
== END 2025-01-31 15:06 | disposition home or self-care (01) ==
LOC: ER 11:26
DX: M94.0 Chondrocostal junction syndrome [Tietze] (principal); E78.5 Hyperlipidemia, unspecified; E78.00 Pure hypercholesterolemia, unspecified; F17.210 Nicotine dependence, cigarettes, uncomplicated
CPT/HCPCS: 36415; 71045; 80048; 84484; 85025; 93005; 96372; 99285; J1100